=== PATIENT | male | born 1985 | race Caucasian/White ===

== ENCOUNTER 2023-01-13 09:59 | Outpatient (OUT) | payer BC, SELFPAY ==
[2023-01-13 10:37] LABS: Basophils Absolute Auto 0.1 10^3/uL (0.0-0.1); Basophils Percent Auto 0.6 % (0.2-2.0); Eosinophils Absolute Auto 0.2 10^3/uL (0.0-0.7); Eosinophils Percent Auto 2.4 % (0.9-7.0); Hemoglobin 15.5 g/dL (14.0-18.0); Immature Granulocytes Abs Auto 0.05 10^3/uL (0.00-0.03); Immature Granulocytes Pct Auto 0.5 % (0.0-0.5); Lymphocytes Absolute Auto 2.5 10^3/uL (1.2-3.8); Lymphocytes Percent Auto 25.9 % (20.5-60.0); Mean Corpuscular Hemoglobin 28.1 pg (25.9-34.0); Mean Corpuscular Volume 85.3 fL (80.0-94.0); Mean Platelet Volume 9.5 fL (9.5-13.5); Monocytes Percent Auto 9.9 % (1.7-12.0); Neutrophils Absolute Auto 5.9 10^3/uL (1.4-6.5); Neutrophils Percent Auto 60.7 % (43.0-75.0); Platelet Count 400 10^3/uL (150-450); Red Blood Count 5.51 10^6/uL (4.70-6.10); Red Cell Distribution Width 12.7 % (11.0-15.0); White Blood Count 9.8 10^3/uL (4.0-11.0)
[2023-01-13 11:01] LABS: Estimated Average Glucose 111 mg/dL; Glycohemoglobin A1C 5.5 % (4.5-6.2)
[2023-01-13 11:15] LABS: Alanine Aminotransferase 54 U/L (16-63); Albumin Globulin Ratio 0.8; Albumin Level 3.6 g/dL (3.4-5.0); Alkaline Phosphatase 94 U/L (46-116); Aspartate Amino Transferase 30 U/L (15-37); BUN Creatinine Ratio 5.1; Bilirubin Total 0.4 mg/dL (0.2-1.0); Calcium 9.6 mg/dL (8.5-10.1); Carbon Dioxide 25.9 mmol/L (21.0-32.0); Chloride 103 mmol/L (98-107); Chol HDL Ratio 4.7; Cholesterol 147 mg/dL (<=200); Estimated GFR (African America >60 (>=60); Estimated GFR (Non-African Ame >60 (>=60); Free T3 2.94 pg/mL (2.18-3.98); Globulin 4.3 g/dL; Glucose 91 mg/dL (74-106); HDL Cholesterol 31 mg/dL (40-60); Potassium 3.9 mmol/L (3.5-5.1); Sodium 139 mmol/L (136-145); Thyroid Stimulating Hormone 1.877 uIU/mL (0.358-3.740); Total Protein 7.9 g/dL (6.4-8.2); Triglycerides 336 mg/dL (<=150); VLDL CHOLESTEROL 67.2 mg/dL
[2023-01-13 11:51] LABS: Prostate Specific Antigen Scrn 1.19 ng/mL (<=4.00)
[2023-01-14 10:10] LABS: Insulin 47.7 uIU/mL (2.6-24.9)
== END 2023-01-13 10:00 | disposition home or self-care (01) ==
LOC: LAB 10:03
PROVIDERS: PCP Family Medicine; Visit Provider Family Medicine
DX: Z00.00 Encounter for general adult medical examination without abnormal findings (principal)
CPT/HCPCS: 36415; 80053; 80061; 83036; 83525; 84436; 84443; 84481; 85025; G0103

== ENCOUNTER 2023-02-11 09:23 | Outpatient (OUT) | payer BC, SELFPAY ==
--- NOTE | 2023-02-11 09:40 | XR_ITS ---
The [address] [address] Patient Name: BETINA CHAVIRA MRN: [id number] date: 1985 Sex: M Assigned Patient Location: [facility] Current Patient Location: Accession/Order Number: [id number] Exam Date: 02/11/2023 09:33 Report Date: 02/12/2023 12:01 At the request of: KP WILLSON Procedure: XR thoracic spine 2V EXAMINATION: XR thoracic spine 2V HISTORY: Thoracic Sprain S23.9XXA ; thoracic pain/spasm for 2 days COMPARISON: XR chest 2 views 06/27/2016 FINDINGS: BONES: No significant spondylosis, scoliosis, fracture, or visible bony lesion. DISC SPACES: No significant disc height narrowing, subluxation, or endplate abnormality. PARASPINOUS: Negative. No paraspinous abnormality is seen. OTHER: Negative. XR/XR thoracic spine 2V IMPRESSION: 1. Normal examination. Electronically authenticated by: BOUCHRA EMERSON Date: 02/12/2023 12:01
== END 2023-02-11 09:24 | disposition home or self-care (01) ==
LOC: RAD 09:25
PROVIDERS: PCP Family Medicine; Visit Provider Family Medicine
DX: S23.9XXA Sprain of unspecified parts of thorax, initial encounter (principal)
CPT/HCPCS: 72070

== ENCOUNTER 2024-11-17 09:05 | Outpatient (OUT) | payer BC, SELFPAY ==
--- OUTSIDE RECORDS SUMMARY | 2023-09-27 04:58 | XMS_ITS ---
Author Organization The [facility] in [place] Address [address] [place] [address] Care Team Providers Care Health Care Coach Name Role Phone Tomás Peña Primary Care Provider REASON FOR VISIT Ozempic denied Encounters Encounter Location Date Provider Diagnosis [facility] [address] [place] [address] 09/27/2023 Tomás Peña Plan Of Treatment No Information Progress Notes * Rojas CHAVIRA JrDOB: [birth year] (37 yo M)Acc No.[id number]:09/27/2023 Patient: Aliya Rojas KEARNEY Jr :1985 A ge:37 Y S ex:Male Address:[address] [place] [address], [address] * true * Date: Generated for Paulettei ng/Famarving/eTransmitting on: 0 11/17/2024 09:11 AM EDT
--- OUTSIDE RECORDS SUMMARY | 2023-09-29 09:40 | XMS_ITS ---
Author Organization The [facility] in [place] Address [address] [place] [address] Care Team Providers Care Roper Operator Name Role Phone Tomás Peña Primary Care Provider REASON FOR VISIT ozempic Encounters Encounter Location Date Provider Diagnosis [facility] [address] [place] [address] 09/29/2023 Tomás Peña Plan Of Treatment No Information Progress Notes * Rojas CHAVIRA JrDOB: [birth year] (37 yo M)Acc No.[id number]:09/29/2023 Patient: Aliya Rojas EKARNEY Jr :1985 A ge:37 Y S ex:Male Address:[address] [place] [address], [phone] * true * Date: Generated for Printi ng/Famarving/eTransmitting on: 0 11/17/2024 09:12 AM EDT
--- OUTSIDE RECORDS SUMMARY | 2024-05-05 09:30 | XMS_ITS ---
Author Organization The [facility] in [place] Address [address] [place] [address] Care Team Providers Care Brush Finisher Name Role Phone Tomás Peña Primary Care Provider [phone] Allergies Allergen (clinical drug ingredient) Drug/Non Drug Allergy documented on EMR Reaction Allergy Type Onset Date Status phentermine Adipex-P hallucinations Drug Allergy Active pantoprazole Protonix Thyroid Swelling Drug Allergy Active REASON FOR VISIT Flu A getting over still sick thinks he has fluid on lungs, went to urgent care on wednesday, currently on amoxicillin 500mg bid Medications Medication SIG (Take, Route, Frequency, Duration) Notes Start Date End Date Status levoFLOXacin 750 MG 1 tablet Orally Once a day for 10 day(s) 05/05/2024 Active predniSONE 20 MG 3 tablets Orally Onc e a day for 5 days 05/05/2024 Active Triamcinolone Acetonide 0.1 % 1 application Externally Two times a Week 09/22/2023 Active Ventolin HFA 108 (90 Base) MCG/ACT 1 puff as needed Inhalation every 4 hrs PRN Active Diclofenac Sodium 75 MG 1 tablet as need ed Orally Twice a day for 30 PRN 02/11/2023 Active Social History Tobacco Use: Social History Observation Description Date Details (start date - stop date) Never Smoker NA - NA Tobacco Use/Smoking Question Answer Notes Patient is a nonsmoker AUDIT-C (Standard) Question Answer Notes Did you have a drink containing alcohol in the p ast year? No Points 0 Interpretation Negative Vital Signs Weight 230 lbs 05/05/2024 Height 69 in 05/05/2024 Blood pressure systolic 110 mm Hg 05/05/19 25 Blood pressure diastolic 68 mm Hg 025 BMI 33.96 kg/m2 05/05/2024 Encounters Encounter Location Date Provider Diagnosis [facility] [address] [place] [address] 05/05/2024 Tomás Peña Acute bronchitis, unspecified organism J20.9 Assessments Encounter Date Diagnosis (ICD Code) Assessment Notes Treatment Notes Treatment Clinical Notes Section Notes 05/05/2024 Acute bronchitis, unspecified organism (ICD-10 - J20.9) Rest and drink more liquids, especially water. You may use a humidifier or vaporizer to help keep the drainage moist. Qwas-rwn-xmpuxcr Nasal Saline may help the stuffy and runny nose. Use Ibuprofen and or Tylenol as needed for fever, chills, body aches or pain. Children 5 years old should not be given pyol-vxo-tgrzmri cough and cold medications such as guaifenesin and dextromethorphan. If you're over age 5, you may try jquq-mqh-pcunurz cold medications such as guaifenesin and dextromethorphan, or multi-symptom cold reliever such as Dayquil to help reduce the symptoms. Antibiotics have been prescribed. You should take these until completed and follow the directions. Antibiotics can sometimes cause upset stomach, and in rare cases, serious allergic reactions or serious gastrointestinal problems. If you start having severe abdominal pain, severe vomiting, or bloody diarrhea, you should be reevaluated by your physician or urgent care immediately. Follow up with your Primary Care Provider or return to clinic if symptoms do not improve within 3-5 days. If you develop severe symptoms such as shortness of breath, repeated vomiting, coughing up blood, or chest pain you should go to the emergency room or call 911 Plan Of Treatment Medication Medication Name Sig Start Date Stop Date Notes levoFLOXacin 750 MG 1 tablet Orally Once a day for 10 day(s) 05/05/2024 predniSONE 20 MG 3 tablets Orally Once a day for 5 days Treatment Notes Assessment Notes Acute bronchitis, unspecified organism R est and drink more liquids, especially water. You may use a humidifier or vaporizer to help keep the drainage moist. Khpk-cer-bxzivde Nasal Saline may help the stuffy and runny nose. Use Ibuprofen and or Tylenol as needed for fever, chills, body aches or pain. Children 5 years old should not be given rlyn-zoq-cmhopyw cough and cold medications such as guaifenesin and dextromethorphan. If you're over age 5, you may try xdgv-gpp-iekekhl cold medications such as guaifenesin and dextromethorphan, or multi-symptom cold reliever such as Dayquil to help reduce the symptoms. Antibiotics have been prescribed. You should take these until completed and follow the directions. Antibiotics can sometimes cause upset stomach, and in rare cases, serious allergic reactions or serious gastrointestinal problems. If you start having severe abdominal pain, severe vomiting, or bloody diarrhea, you should be reevaluated by your physician or urgent care immediately. Follow up with your Primary Care Provider or return to clinic if symptoms do not improve within 3-5 days. If you develop severe symptoms such as shortness of breath, repeated vomiting, coughing up blood, or chest pain you should go to the emergency room or call 911 Next Appt Details Follow Up: 3-5 days if not i mproving, Reason: Progress Notes * FANRojas JrDOB: [birth year] (38 yo M)Acc No.[id number]:05/05/2024 Progress Note Patient: Aliya KEARNEY Rojas Yañez Provider: Arpita Peña ([facility])MD :1985 A ge:38 Y S ex:Male Date:05/05/2024 Address:[address] [place], [place] [id number] Check In:01:20 PM ESTCheck O ut:01:41 PM EST Subjective: * Chief Complaints: * Erica Yañez getting over still sick thinks he has fluid on lungsWent to urgent care on wednesday, currently on amoxicillin 500mg bid * HPI: B ronchitis: The patient complains of symptoms of bronchitis. The symptoms have been present for 1-2 days. The symptoms are moderate. The patient has not been exposed to sick contacts. Symptomatic treatment has included OTC medication. Associated symptoms include nasal congestion, postnasal drainage, congested ears, cough, fever, chills, body aches. * ROS: E NT: Ear pain d enies. H oarseness d enies. ? C ardiovascular: Edema d enies. P alpitations d enies. ? R espiratory: Comments S [facility] for details. G astrointestinal: Abdominal pain d enies. D iarrhea d enies. N ausea d enies. S kin: Rash d enies. 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 (erectile dysfunc tion) of non-organic origin Modified On:08/11/2022 Status:confirmed L71.9 Rosacea Modified On:08/11/2022 Status:confirmed J30.2 Allergic rhinitis, s easonal Modified On:08/11/2022 Status:confirmed E11.65 Type 2 diabetes rich itus with hyperglycemia Modified On:08/11/2022 Status:confirmed J45.909 Asthma Modified On:08/11/2022 Status:confirmed E66.9 Obesity Modified On:08/11/2022 Status:confirmed F32.9 Depression Modified On:08/11/2022 Status:confirmed R22.0 Mass of head Modified On:08/11/2022 Status:confirmed K21.9 Gastro-esophageal re flux disease Modified On:08/11/2022 Status:confirmed B08.8 Other specified ivette l exanthemata Modified On:08/11/2022 Status:confirmed M79.643 Pain, hand joint Modified On:08/11/2022U Status:confirmed U07.1 COVID-19 virus infec tion Modified On:08/11/2022 Status:confirmed M54.50 Low back pain, unspe cified Modified On:08/11/2022U Status:confirmed G47.00 Insomnia Modified On:08/12/2022 Status:confirmed F32.A Depression Modified On:08/12/2022 Status:confirmed E78.00 Pure hypercholestero lemia, unspecified Modified On:01/14/2023 Status:confirmed S23.9XXA Thoracic sprain Modified On:02/11/2023 Status:confirmed J01.90 Acute sinusitis Modified On:05/20/2023U Status:confirmed L30.9 Eczema Modified On:09/22/2023 Status:confirmed * Medical History: * Surgical History: D iscectomy Clavicle Realignment [place] Teeth Extraction * Hospitalization/Major Diagno stic Procedure: N o Hospitalization History. * Family History: F ather: alive 55 yrs. M other: alive 55 yrs. S ister(s): alive, Chron's disease. S on(s): alive. D aughter(s): alive. 1 sister(s) . 1 son(s) , 1 daughter(s) - healthy. .? * Social History: T obacco Use: T obacco Use/Smoking P atient is a n onsmoker D rug/Alcohol: A HEBER-C (Standard) D id you have a drink containing alcohol in the past year? N o P oints 0 I nterpretation N egative * Medications: T akingDiclofenac Sodium 75 MG Tablet Delayed Release 1 tablet as needed Orally Twice a day , Notes to Pharmacist: PRNTriamcinolone Acetonide 0.1 % Cream 1 application Externally Two times a Week Ventolin HFA(Albuterol Sulfate HFA) 108 (90 Base) MCG/ACT Aerosol Solution 1 puff as needed Inhalation every 4 hrs , Notes to Pharmacist: PRNMedication List reviewed and reconciled with the patientTaking Diclofenac Sodium 75 MG Tablet Delayed Release 1 tablet as needed Orally Twice a day , Notes to Pharmacist: PRNTaking Triamcinolone Acetonide 0.1 % Cream 1 application Externally Two times a Week Taking Ventolin HFA(Albuterol Sulfate HFA) 108 (90 Base) MCG/ACT Aerosol Solution 1 puff as needed Inhalation every 4 hrs , Notes to Pharmacist: PRNMedication List reviewed and reconciled with the patient * Allergies: P rotonix: Thyroid Swelling - Allergy - Criticality HighAdipex-P: hallucinations - Side Effectsno[Allergies Verified] Objective: * Vitals: W t:230lbs, Ht: 69 in, BP:110/68mm Hg, BMI:33.96Index, Ht-cm: 175.26 cm, Wt-k.33 kg. * Examination: G eneral Examination: GENERAL APPEARANCE: in no acute distress. EYES: EOMI. EARS: auditory canal clear, middle ear effusion noted.? NOSE: clear discharge, turbinates pale and swollen. ORAL CAVITY: mucosa moist. THROAT: no erythema, post-nasal drainage noted. NECK: neck supple, no thyromegaly. LYMPH NODES: n o cervical adenopathy. LUNGS: d iffuse wheeze and rhonchi. CARDIO: n o murmurs, regular rate and rhythm. ABDOMEN: bowel sounds present, no organomegaly . ? Assessment: * Assessment: 1. A cute bronchitis, unspecified organism - J20.9 (Primary) Plan: * Treatment: * Procedure Codes: * Preventive Medicine: Screenings/Counseling: B SC ACTION PLAN Above Normal BMI Follow-up D ietary management education, guidance, and counseling * Follow Up: 3 -5 days if not improving * * Sign off status: Completed Visit Status: C HK (Check Out) true * Provider: Arpita Peña ([facility])MD Date: 05/05/2024 Generated for Paulettei herlinda/Ruperto/eTransmitting on: 0 11/17/2024 09:11 AM EDT History and Physical Notes * Examination Category Sub-Category Detail Notes Category Not es General Examination GENERAL APPEARANCE: in no acute di stress EYES: EOMI EARS: auditory canal clear , middle ear effusion noted NOSE: clear discharge, tur binates pale and swollen THROAT: no erythema, post-na koko drainage noted NECK: neck supple, no thyr omegaly CARDIO: no murmurs, regular rate and rhythm LUNGS: diffuse wheeze and r honchi ABDOMEN: bowel sounds present , no organomegaly LYMPH NODES: no cervical adenopat hy ORAL CAVITY: mucosa moist
--- OUTSIDE RECORDS SUMMARY | 2024-10-20 06:00 | XMS_ITS ---
Author Organization The [facility] in [place] Address [address] [place] [address] Care Team Providers Care Cafeteria Attendant Name Role Phone Tomás Peña Primary Care Provider Allergies Allergen (clinical drug ingredient) Drug/Non Drug Allergy documented on EMR Reaction Allergy Type Onset Date Status phentermine Adipex-P hallucinations Drug Allergy Active pantoprazole Protonix Thyroid Swelling Drug Allergy Active REASON FOR VISIT eczema flare, stomach arm pits and legs and arms, heat not helping, used OTC and Rx steriod cream nothing helping Medications Medication SIG (Take, Route, Frequency, Duration) Notes Start Date End Date Status predniSONE 20 MG 3 tablets Orally Onc e a day for 5 days 05/05/2024 Active Triamcinolone Acetonide 0.1 % 1 application Externally Two times a Week 09/22/2023 Active Ventolin HFA 108 (90 Base) MCG/ACT 1 puff as needed Inhalation every 4 hrs PRN Active predniSONE 20 MG 3 tablets Orally Onc e a day for 5 days 10/20/2024 Active levoFLOXacin 750 MG 1 tablet Orally Once a day for 10 day(s) 05/05/2024 Active Diclofenac Sodium 75 MG 1 tablet [...] Points 0 Interpretation Negative Vital Signs Weight 234.4 lbs 10/20/2024 Height 69 in 10/20/2024 Blood pressure systolic 110 mm Hg 10/21/19 25 Blood pressure diastolic 78 mm Hg 025 BMI 34.61 kg/m2 10/20/2024 Encounters Encounter Location Date Provider Diagnosis [facility] [address] [place] [address] 10/20/2024 Tomás Peña Eczema L30.9 Assessments Encounter Date Diagnosis (ICD Code) Assessment Notes Treatment Notes Treatment Clinical Notes Section Notes 10/20/2024 Eczema (ICD-10 - L30.9) Plan Of Treatment Medication Medication Name Sig Start Date Stop Date Notes predniSONE 20 MG 3 tablets Orally Once a day for 5 days Medications Administered Medication Instructions Date of Administration Dosage Notes Dexamethasone, 4mg/mL 10/20/2024 12 mg Progress Notes * Rojas CHAVIRA JrDOB: [birth year] (38 yo M)Acc No.[id number]:10/20/2024 Progress Note Patient: Aliya KEARNEY Rojas Yañez Provider: Arpita Peña ([facility])MD :1985 A ge:38 Y S ex:Male Date:10/20/2024 Address:[address] [place], [place] [address] Check In:09:42 AM ESTCheck O ut:10:24 AM EST Subjective: * Chief Complaints: * E czema flareStomach arm pits and legs and armsHeat not helpingused OTC and Rx steriod cream nothing helping * HPI: G eneral: Eczema flare - pretty bekph1r - gettign worse -0 despite usual cream. * Active Problem List M51.9 Lumbar disc disease Modified On:08/11/2022/U Status:confirmed M51.26 Lumbar herniated dis c Modified On:08/11/2022/U Status:confirmed K52.9 Chronic diarrhea Modified On:08/11/2022/U Status:confirmed M54.30 Sciatica Modified On:08/11/2022/U Status:confirmed M79.661 Pain in right lower leg Modified On:08/11/2022/U Status:confirmed F52.21 ED (erectile dysfunc tion) of [...] On:08/11/2022 Status:confirmed M79.643 Pain, hand joint Modified On:08/11/2022 Status:confirmed U07.1 COVID-19 virus infec tion Modified On:08/11/2022 Status:confirmed M54.50 Low back pain, unspe cified Modified On:08/11/2022 Status:confirmed G47.00 Insomnia Modified On:08/12/2022 Status:confirmed F32.A Depression Modified On:08/12/2022 Status:confirmed E78.00 Pure hypercholestero lemia, unspecified Modified On:01/14/2023 Status:confirmed S23.9XXA Thoracic sprain Modified On:02/11/2023 Status:confirmed J01.90 Acute sinusitis Modified On:05/20/2023 Status:confirmed L30.9 Eczema Modified On:09/22/2023 Status:confirmed * Medical History: * Surgical History: D iscectomy Clavicle Realignment [place] Teeth Extraction * Hospitalization/Major Diagno stic Procedure: D enies Past Hospitalization * Family History: F ather: alive 55 yrs. M other: alive 55 yrs. S ister(s): alive, Chron's disease. S on(s): alive. D pranaver(s): alive. 1 sister(s) . 1 son(s) , [...] Twice a day , Notes to Pharmacist: PRNlevoFLOXacin 750 MG Tablet 1 tablet Orally Once a day predniSONE 20 MG Tablet 3 tablets Orally Once a day Triamcinolone Acetonide 0.1 % Cream 1 application Externally Two times a Week Ventolin HFA(Albuterol Sulfate HFA) 108 (90 Base) MCG/ACT Aerosol Solution 1 puff as needed Inhalation every 4 hrs , Notes to Pharmacist: PRNMedication List reviewed and reconciled with the patientTaking Diclofenac Sodium 75 MG Tablet Delayed Release 1 tablet as needed Orally Twice a day , Notes to Pharmacist: PRNTaking levoFLOXacin 750 MG Tablet 1 tablet Orally Once a day Taking predniSONE 20 MG Tablet 3 tablets Orally Once a day Taking Triamcinolone Acetonide 0.1 % Cream 1 application Externally Two times a Week Taking Ventolin HFA(Albuterol Sulfate HFA) 108 (90 Base) MCG/ACT Aerosol Solution 1 puff as needed Inhalation every 4 hrs , Notes to Pharmacist: PRNMedication List reviewed and reconciled with the patient * Allergies: P rotonix: Thyroid Swelling - Allergy - Criticality HighAdipex-P: hallucinations - Side Effectsno[Allergies Verified] Objective: * Vitals: W t:234.4lbs, Ht: 69 in, BP:110/78mm Hg, BMI:34.61Index, Ht-cm: 175.26 cm, Wt-k.32 kg. * Examination: A bdomen Exam:: d iffuse exezema - sever palre - abd and up into acilla and arms. Assessment: * Assessment: 1. E czema - L30.9 (Primary) Plan: * Treatment: * Therapeutic Injections: Dexamethasone, 4mg/mL : 12 mg (Route: Intramuscular) given by NICOLE Bazan on left gluteus (Eczema) * Procedure Codes: [id number] THERAP.INJ. OF MED. INTRAMUSCULAR OR [id number] Dexamethasone, 4mg/mL, Units: 3.00 * Preventive Medicine: Screenings/Counseling: B [place] ACTION PLAN Above Normal BMI Follow-up D ietary management education, guidance, and counseling * * Sign off status: Completed Visit Status: C HK (Check Out) true * Provider: Arpita Peña ([facility])MD Date: 0 10/20/2024 Generated for Mikie pate/Ruperto/Apolloitting on: 0 11/17/2024 09:11 AM EDT History and Physical Notes * HPI (History of Present Illness) Category Sub-Category Detail Notes Category Not es General Eczema flare - pretty [id number] - gettign worse -0 despite usual cream Examination Category Sub-Category Detail Notes Category Not es Abdomen Exam: diffuse exezem a - sever palre - abd and up into acilla and arms
--- OUTSIDE RECORDS SUMMARY | 2024-11-16 05:00 | XMS_ITS ---
Author Organization [facility] [place] Address [address] [place] [address] Care Team Providers Care Sports Book Server Name Role Phone Tomás Peña Primary Care Provider Allergies Allergen (clinical drug ingredient) Drug/Non Drug Allergy documented on EMR Reaction Allergy Type Onset Date Status phentermine Adipex-P hallucinations Drug Allergy Active pantoprazole Protonix Thyroid Swelling Drug Allergy Active REASON FOR VISIT Headache above right eye that comes on around 1pm last 4 hours, no meds help it- then goes away for2 hours and comes back- dont wake up with it- feels like ice pick above right eyebrow Medications Medication SIG (Take, Route, Frequency, Duration) Notes Start Date End Date Status Ventolin HFA 108 (90 Base) MCG/ACT 1 puff as needed Inhalation every 4 hrs PRN Active Triamcinolone Acetonide 0.1 % 1 application Externally Two times a Week 09/22/2023 Active Imitrex 100 MG 1 tablet at least 2 hours between doses as needed Orally Twice a day As needed 11/16/2024 Active Social History Tobacco Use: Social History Observation Description Date Details (start date - stop date) Never Smoker NA - NA Tobacco Use/Smoking Question Answer Notes Patient is a nonsmoker AUDIT-C (Standard) Question Answer Notes Did you have a drink containing alcohol in the p ast year? No Points 0 Interpretation Negative Problems Problem Type SNOMED Code ICD Code Onset Dates Problem Status W/U Status Risk Notes Problem Well adult (131222893) Well adult (Z00.00) Active confirmed Problem Migraine (27489220) Migraine (G43.909) Active confirmed Vital Signs Weight 241.6 lbs 11/16/2024 Height 69 in 11/16/2024 Blood pressure systolic 124 mm Hg 11/17/19 25 Blood pressure diastolic 82 mm Hg 025 BMI 35.67 kg/m2 11/16/2024 Encounters Encounter Location Date Provider Diagnosis [facility] [address] [place] [address] 11/16/2024 Tomás Hoy Migraine G43.909 and Well adult Z00.00 Assessments Encounter Date Diagnosis (ICD Code) Assessment Notes Treatment Notes Treatment Clinical Notes Section Notes 11/16/2024 Migraine (ICD-10 - G43.909) If imitrex not helping - calling back - needs MRI and try different meds 11/16/2024 Well adult (ICD-10 - Z00.00) Plan Of Treatment Medication Medication Name Sig Start Date Stop Date Notes Imitrex 100 MG 1 tablet at least 2 hours between doses as needed Orally Twice a day 11/16/2024 Treatment Notes Assessment Notes Migraine If imitrex not helpi ng - calling back - needs MRI and try different meds Pending Test Test Name Order Date HEMOGLOBIN A1C (GLYCO) 11/16/2024 INSULIN, TOTAL 11/16/2024 LIPID PANEL (CHOL/TRIG/HDL/LDL) 11/17/19 25 THYROID PANEL (T4/TSH/FREE T3) CMP (COMP MET PRICE) w/eGFR CKD-EPI 2024 CBC WITH DIFF 11/16/2024 Progress Notes * Rojas CHAVIRA JrDOB: [birth year] (38 yo M)Acc No.[id number]:11/16/2024 UNLOCKED PROGRESS NOTE Progress Note Patient: Aliya KEARNEYRojas Jr Provider: Arpita Peña ([facility])MD :1985 A ge:38 Y S ex:Male Date:11/16/2024 Address:[address] [place], [place] [id number] Check In:08:33 AM ESTCheck O ut:09:31 AM EST Subjective: * Chief Complaints: * 1 . Headache above right eye that comes on around 1pm last 4 hours, no meds help it- then goes away for 2 hours and comes back- dont wake up with it- feels like ice pick above right eyebrow. * HPI: G eneral: amost every day - getting headachds- - R frontal but no other symptoms. * ROS: E ENT: hearing changes d enies. v isual changes d enies.?non-healing mouth sores d enies. s wollen glands or neck lumps d enies. h oarseness d enies. s ore throat d enies. d ifficulty swallowing d enies. n ose bleeds d enies. n javed congestion d enies. e ar ache d enies. e ar discharge?denies. r inging in ears d enies. l ight sensitivity d enies. e ye pain d enies. b lurring d enies. e ye irritation d enies. d ouble vision d enies.?vision loss d enies. G eneral/Constitutional: Sweats: D enies. F atigue d enies. S leep problems d enies. A norexia d enies. M alaise d enies. W eight loss d enies.?Fatigue or Weakness d enies. F ever or Chills d enies. C ardiovascular: Shortness of Breath w/lying flat d enies. L ightheadedness/dizziness d enies. C hest tightness/ heavy pressure d enies. S welling of legs, ankles, or feet d enies. W aking up with shortness of breath d enies. C hest pain denies. P alpitations d enies. W eight gain d enies. R espiratory: Chronic or frequent cough d enies. C oughing up blood?denies. D ifficulty breathing d enies. P roductive cough d enies. S noring?denies. S hortness of breath that awakens from sleep (PND) d enies. C hest pain d enies. S putum production d enies. W heezing d enies. M usculoskeletal: Joint pain d enies. J oint Fluid d enies. B ack pain d enies. K nee pain d enies. N frankie pain d enies. J oint Stiffness d enies. M uscle cramps d enies. W eakness of muscles d enies. A rthritis d enies. M uscle aches d enies. P ain in shoulder(s) d enies. S wollen joints d enies. * Medical History: C OVID-19 virus infection, Other specified viral exanthemata, Mass of head, Gastro-esophageal reflux disease, Obesity, Low back pain, unspecified, Lumbar herniated disc, Sciatica, Pain in right lower leg, Lumbar disc disease, Chronic diarrhea, Type 2 diabetes mellitus with hyperglycemia, Rosacea, Pain, hand joint, ED (erectile dysfunction) of non-organic origin, Allergic rhinitis, seasonal, Depression, Asthma. * Surgical History: D iscectomy , Clavicle Realignment , [place] Teeth Extraction . * Hospitalization/Major Diagno stic Procedure: D enies Past Hospitalization. * Family History: F ather: alive 55 yrs. M other: alive 55 yrs. S ister(s): alive, Chron's disease. S on(s): alive. D augblakeer(s): alive. 1 sister(s) . 1 son(s) , 1 daughter(s) - healthy. .? * Social History: T obacco Use: T obacco Use/Smoking P atient is a n onsmoker D rug/Alcohol: A HEBER-C (Standard) D id you have a drink containing alcohol in the past year? N o P oints 0 I nterpretation N egative * Medications: T aking Triamcinolone Acetonide 0.1 % Cream 1 application Externally Two times a Week , Taking Ventolin HFA(Albuterol Sulfate HFA) 108 (90 Base) MCG/ACT Aerosol Solution 1 puff as needed Inhalation every 4 hrs , Notes to Pharmacist: PRN, Discontinued Diclofenac Sodium 75 MG Tablet Delayed Release 1 tablet as needed Orally Twice a day , Notes to Pharmacist: PRN, Discontinued levoFLOXacin 750 MG Tablet 1 tablet Orally Once a day , Discontinued predniSONE 20 MG Tablet 3 tablets Orally Once a day , Discontinued predniSONE 20 MG Tablet 3 tablets Orally Once a day , Medication List reviewed and reconciled with the patient * Allergies: P rotonix: Thyroid Swelling - Allergy - Criticality High, Adipex-P: hallucinations - Side Effects. Objective: * Vitals: W t:241.6lbs, Ht: 69 in, BP:124/82mm Hg, BMI:35.67Index, Ht-cm: 175.26 cm, Wt-k.59 kg. * Examination: P hysical Exam: GENERAL: w ell developed, well nourished, in no acute distress. HEAD: n ormocephalic/atraumatic. EYES: p upils equal, round and reactive to light, conjunctivae and sclerae normal. EARS: n o deformity or lesion of external ear, canals and TM appear normal bilaterally, TM's intact, not inflamed with normal light reflex, hearing grossly normal to conversational speech. NOSE: n o deformity, discharge, inflammation, or lesions.? MOUTH: m ucous membranes moist, normal oropharynx and posterior pharynx without lesions or exudates, tongue normal, dentition normal. NECK: n frankie supple, no masses or palpable cervical nodes, trachea midline, thyroid without nodules, masses, tenderness, or enlargement. CHEST: n o chest wall deformity, no chest wall tenderness.? LUNGS: n ormal respiratory effort and clear to auscultation, no wheezes, rales, or rhonchi, good air exchange. CARDIO: r egular rate and rhythm, normal S1 and S2, nor murmur, rub, or gallop. PULSES: n ormal capillary refill. ABDOMEN: s oft, non-distended, non-tender, no masses. MUSCULOSKELETAL: n o deformity or scoliosis noted, normal range of motion, joints normal, no erythema, edema, effusion, or ecchymosis. EXTREMITY: n o clubbing, cyanosis, edema, or deformity with normal ROM in both upper and lower bilateral extremities. NEUROLOGIC: g rossly normal. SKIN: n o rashes, ulcerations, or suspicious lesions. LYMPH NODES: n o cervical adenopathy, nodes normal. MENTAL STATUS: a lert and oriented x3, normal mood and affect. Assessment: * Assessment: 1. M igraine - G43.909 (Primary) 2 . W ell adult - Z00.00 Plan: * Treatment: 2. W ell adult L AB: HEMOGLOBIN A1C (GLYCO) L AB: INSULIN, TOTAL L AB: LIPID PANEL (CHOL/TRIG/HDL/LDL) L AB: THYROID PANEL (T4/TSH/FREE T3) L AB: CMP (COMP MET PRICE) w/eGFR CKD-EPI L AB: CBC WITH DIFF * Preventive Medicine: Screenings/Counseling: B TX ACTION PLAN Above Normal BMI Follow-up D ietary management education, guidance, and counseling * * Electronic signature of Tomás Peña MD, [id number] on 11/17/2024 at 09:10 AM EDT Sign off status: Pending Visit Status: C HK (Check Out) * Provider: Arpita Peña ([facility])MD Date: 11/16/2024 Generated for Printi ng/Faxing/eTransmitting on: 11/17/2024 09:10 AM EDT History and Physical Notes * HPI (History of Present Illness) Category Sub-Category Detail Notes Category Not es General amost every day - getting headachds- - R frontal but no other symptoms Examination Category Sub-Category Detail Notes Category Not es Physical Exam GENERAL: well developed, well nourished, in no acute distress HEAD: normocephalic/atraum atic EYES: pupils equal, round and reactive to light, conjunctivae and sclerae normal EARS: no deformity or lesi on of external ear, canals and TM appear normal bilaterally, TM's intact, not inflamed with normal light reflex, hearing grossly normal to conversational speech NOSE: no deformity, discha rge, inflammation, or lesions MOUTH: mucous membranes stefanie st, normal oropharynx and posterior pharynx without lesions or exudates, tongue normal, dentition normal NECK: neck supple, no mass es or palpable cervical nodes, trachea midline, thyroid without nodules, masses, tenderness, or enlargement CHEST: no chest wall deform ity, no chest wall tenderness LUNGS: normal respiratory e ffort and clear to auscultation, no wheezes, rales, or rhonchi, good air exchange CARDIO: regular rate and rhy thm, normal S1 and S2, nor murmur, rub, or gallop PULSES: normal capillary ref ill ABDOMEN: soft, non-distended, non-tender, no masses RECTAL: MUSCULOSKELETAL: no deformity or scol iosis noted, normal range of motion, joints normal, no erythema, edema, effusion, or ecchymosis EXTREMITY: no clubbing, cyanosi s, edema, or deformity with normal ROM in both upper and lower bilateral extremities NEUROLOGIC: grossly normal SKIN: no rashes, ulceratio ns, or suspicious lesions LYMPH NODES: no cervical adenopat hy, nodes normal MENTAL STATUS: alert and oriented x 3, normal mood and affect
--- OUTSIDE RECORDS SUMMARY | 2024-11-17 09:10 | XMS_ITS | Encounter Summary ---
Author Organization [facility] Address [address] [facility] [place] [address] Phone Care Team Providers Care Farm Machinery Erector Name Role Phone Rafa Keen MD Primary Care Provider [phone] Encounter Details Date Type Department Care Team (Late st Contact Info) Description 10/15/2024 Patient Risk Score ACO Care Management [address] [place] [address] Social History Tobacco Use Types Packs/Day Years Used Date Smoking Tobacco: Never Assessed Sex and Gender Information Value Date Recorded Sex Assigned at Not on file Legal Sex Male 4:07 PM EST Gender Identity Not on file Sexual Orientation Not on file documented as of this encounter Plan of Treatment Not on file documented as of this encounter Visit Diagnoses Not on filedocumented in this encounter Care Teams Farm Machinery Erector Relationship Specialty Start Date End Date Rafa Keen MD [address] [facility] [place] [place] [address] PCP - General 11/15/20 documented as of this encounter
--- OUTSIDE RECORDS SUMMARY | 2024-11-17 09:10 | XMS_ITS | Encounter Summary ---
Author Organization [facility] Address [address] [facility] [place] [address] Phone Care Team Providers Care Fire Services Plumber Name Role Phone Rafa Keen MD Primary Care Provider [phone] Encounter Details Date Type Department Care Team (Late st Contact Info) Description 11/15/2024 Patient Risk Score ACO Care Management [address] [place] [address] Social History Tobacco Use Types [...] on filedocumented in this encounter Care Teams Fire Services Plumber Relationship Specialty Start Date End Date Rafa Keen MD [address] [facility] [place] [address] PCP - General 11/15/20 documented as of this encounter
--- OUTSIDE RECORDS SUMMARY | 2024-11-17 09:10 | XMS_ITS | Clinical Summary ---
Author Organization [facility] Address [address] [place] [address] Care Team Providers Care Hang Gliding Instructor Name Role Phone Unavailable Primary Care Provider Unavailabl e Social History Tobacco Use Types Packs/Day Years Used Date Smoking Tobacco: Never Assessed Sex and Gender Information Value Date Recorded Sex Assigned at Not on file Legal Sex Male 8:27 PM EDT Gender Identity Not on file Sexual Orientation Not on file Last Filed Vital Signs Vital Sign Reading Time Taken Comments Blood Pressure 115/88 02/07/2018 12:00 PM EST Pulse - - Temperature - - Respiratory Rate - - Oxygen Saturation - - Inhaled Oxygen Concentration - - Weight 111 kg (245 lb) 07/24/2020 12:00 PM EDT Height 175.3 cm (5' 9 ) 07/24/2020 12:00 PM EDT Body Mass Index 36.18 07/24/2020 12:00 PM EDT Plan of Treatment Not on file
--- OUTSIDE RECORDS SUMMARY | 2024-11-17 09:10 | XMS_ITS | Clinical Summary ---
Author Organization [facility] Address [address] [place] [address] Phone Care Team Providers Care Dry Yard Worker Name Role Phone Rafa Keen MD Primary Care Provider [phone] Encounters Date Type Department Care Team Description 11/15/2024 Patient Risk Score ACO Care Management [address] [place] [address] 10/15/2024 Patient Risk Score ACO Care Management [address] [place] [address] 09/15/2024 Patient Risk Score ACO Care Management [address] [place] [address] from Last 3 Months Social History Tobacco Use Types Packs/Day Years Used Date Smoking Tobacco: Never Assessed Sex and Gender Information Value Date Recorded Sex Assigned at Not on file Legal Sex Male 4:07 PM EST Gender Identity Not on file Sexual Orientation Not on file Plan of Treatment Health Maintenance Due Date Last Done Comments HIV Screening 1985 Lipid Panel 1986 MMR Vaccines (1 of 1 - Stand daniel series) 12/30/1987 Hepatitis C Screening 2004 Hepatitis B Vaccines (1 of 3 - 19+ 3-dose series) 2005 DTaP/Tdap/Td Vaccines (1 - Tdap) 2008 HPV Vaccines (1 - 3-dose sta ndard series) 2013 COVID-19 Vaccine (1 - 2023-2 5 season) 2023 Yearly Adult Physical 01/15/2024 01/13/2023 Influenza Vaccine (#1) 2024 Zoster Vaccines (1 of 2) 2036 HIB Vaccines Aged Out No longer eligi ble based on patient's age to complete this topic Hepatitis A Vaccines Aged Out No long er eligible based on patient's age to complete this topic IPV Vaccines Aged Out No longer eligi ble based on patient's age to complete this topic Meningococcal Vaccine Aged Out No woo marilyn eligible based on patient's age to complete this topic Pneumococcal Vaccine: Pediat rics and At-Risk Adult Patients Aged Out No longer anatoliy gible based on patient's age to complete this topic Rotavirus Vaccines Aged Out No longer eligible based on patient's age to complete this topic Care Teams Dry Yard Worker Relationship Specialty Start Date End Date Rafa Keen MD [address] [place] [address] PCP - General 11/15/20
--- OUTSIDE RECORDS SUMMARY | 2024-11-17 09:11 | XMS_ITS | Encounter Summary ---
Author Organization [facility] Address [address] [facility] [place] [address] Phone Care Team Providers Care Glue Machine Operator Name Role Phone Rafa Keen MD Primary Care Provider [phone] Encounter Details Date Type Department Care Team (Late st Contact Info) Description 07/17/2023 Patient Risk Score ACO Care Management [address] [place] [address] Social History Tobacco Use Types [...] on filedocumented in this encounter Care Teams Glue Machine Operator Relationship Specialty Start Date End Date Rafa Keen MD [address] [facility] [place] [address] PCP - General 11/15/20 documented as of this encounter
--- OUTSIDE RECORDS SUMMARY | 2024-11-17 09:11 | XMS_ITS | Encounter Summary ---
Author Organization [facility] Address [address] [facility] [place] [address] Phone Care Team Providers Care Tile Setter Name Role Phone Rafa Keen MD Primary Care Provider [phone] Encounter Details Date Type Department Care Team (Late st Contact Info) Description 01/17/2024 Patient Risk Score ACO Care Management [address] [place] [address] Social History Tobacco Use Types [...] on filedocumented in this encounter Care Teams Tile Setter Relationship Specialty Start Date End Date Rafa Keen MD [address] [facility] [place] [address] PCP - General 11/15/20 documented as of this encounter
--- OUTSIDE RECORDS SUMMARY | 2024-11-17 09:11 | XMS_ITS | Encounter Summary ---
Author Organization [facility] Address [address] [facility] [address] Phone Care Team Providers Care Channel Layer Name Role Phone Rafa Keen MD Primary Care Provider [phone] Encounter Details Date Type Department Care Team (Late st Contact Info) Description 05/17/2023 Patient Risk Score ACO Care Management [address] [place] [address] Social History Tobacco Use Types [...] on filedocumented in this encounter Care Teams Channel Layer Relationship Specialty Start Date End Date Rafa Keen MD [address] [facility] [place] [address] PCP - General 11/15/20 documented as of this encounter
--- OUTSIDE RECORDS SUMMARY | 2024-11-17 09:11 | XMS_ITS | Encounter Summary ---
Author Organization [facility] Address [address] [facility] [place] [address] Phone Care Team Providers Care Shaker Flatwork Name Role Phone Rafa Keen MD Primary Care Provider [phone] Encounter Details Date Type Department Care Team (Late st Contact Info) Description 06/16/2024 Patient Risk Score ACO Care Management [address] [place] [address] Social History Tobacco Use Types [...] on filedocumented in this encounter Care Teams Shaker Flatwork Relationship Specialty Start Date End Date Rafa Keen MD [address] [facility] [place] [address] PCP - General 11/15/20 documented as of this encounter
--- OUTSIDE RECORDS SUMMARY | 2024-11-17 09:11 | XMS_ITS | Encounter Summary ---
Author Organization [facility] Address [address] [facility] [address] Phone Care Team Providers Care Senior Sourcing Manager Name Role Phone Rafa Keen MD Primary Care Provider [phone] Encounter Details Date Type Department Care Team (Late st Contact Info) Description 02/16/2024 Patient Risk Score ACO Care Management [address] [place] [address] Social History Tobacco Use Types [...] on filedocumented in this encounter Care Teams Senior Sourcing Manager Relationship Specialty Start Date End Date Rafa Keen MD [address] [facility] [place] [address] PCP - General 11/15/20 documented as of this encounter
--- OUTSIDE RECORDS SUMMARY | 2024-11-17 09:11 | XMS_ITS | Encounter Summary ---
Author Organization [facility] Address [address] [facility] [place] [address] Phone Care Team Providers Care Toddler Nanny Name Role Phone Rafa Keen MD Primary Care Provider [phone] Encounter Details Date Type Department Care Team (Late st Contact Info) Description 03/18/2024 Patient Risk Score ACO Care Management [address] [place] [address] Social History Tobacco Use Types [...] on filedocumented in this encounter Care Teams Toddler Nanny Relationship Specialty Start Date End Date Rafa Keen MD [address] [facility] [place] [address] PCP - General 11/15/20 documented as of this encounter
--- OUTSIDE RECORDS SUMMARY | 2024-11-17 09:11 | XMS_ITS | Encounter Summary ---
Author Organization [facility] Address [address] [facility] [place] [address] Phone Care Team Providers Care Hospice Home Care Coordinator Name Role Phone Rafa Keen MD Primary Care Provider [phone] Encounter Details Date Type Department Care Team (Late st Contact Info) Description 07/16/2024 Patient Risk Score ACO Care Management [address] [place] [address] Social History Tobacco Use Types [...] on filedocumented in this encounter Care Teams Hospice Home Care Coordinator Relationship Specialty Start Date End Date Rafa Keen MD [address] [place] [address] PCP - General 11/15/20 documented as of this encounter
--- OUTSIDE RECORDS SUMMARY | 2024-11-17 09:11 | XMS_ITS | Encounter Summary ---
Author Organization [facility] Address [address] [place] [address] Phone Care Team Providers Care Web Press Operator Assistant Name Role Phone Rafa Keen MD Primary Care Provider [phone] Encounter Details Date Type Department Care Team (Late st Contact Info) Description 09/15/2024 Patient Risk Score ACO Care Management [address] [place] [address] Social History Tobacco Use Types [...] on filedocumented in this encounter Care Teams Web Press Operator Assistant Relationship Specialty Start Date End Date Rafa Keen MD [address] [facility] [place] [address] PCP - General 11/15/20 documented as of this encounter
--- OUTSIDE RECORDS SUMMARY | 2024-11-17 09:11 | XMS_ITS | Encounter Summary ---
Author Organization [facility] Address [address] [place] [address] Phone Care Team Providers Care Senior Operations Manager Name Role Phone Rafa Keen MD Primary Care Provider Encounter Details Date Type Department Care Team (Late st Contact Info) Description 05/16/2024 Patient Risk Score ACO Care Management [address] [place] [address] Social History Tobacco Use Types [...] filedocumented in this encounter Care Teams Senior Operations Manager Relationship Specialty Start Date End Date Rafa Keen MD [address] [facility] [place] [address] PCP - General 11/15/20 documented as of this encounter
--- OUTSIDE RECORDS SUMMARY | 2024-11-17 09:11 | XMS_ITS | Encounter Summary ---
Author Organization [facility] Address [address] [facility] [place] [address] Phone Care Team Providers Care Perennial House Manager Name Role Phone Rafa Keen MD Primary Care Provider [phone] Encounter Details Date Type Department Care Team (Late st Contact Info) Description 04/18/2024 Patient Risk Score ACO Care Management [address] [place] [address] Social History Tobacco Use Types [...] on filedocumented in this encounter Care Teams Perennial House Manager Relationship Specialty Start Date End Date Rafa Keen MD [address] [facility] [place] [address] PCP - General 11/15/20 documented as of this encounter
--- OUTSIDE RECORDS SUMMARY | 2024-11-17 09:11 | XMS_ITS | Encounter Summary ---
Author Organization [facility] Address [address] [facility] [place] [address] Phone Care Team Providers Care Worm Grower Name Role Phone Rafa Keen MD Primary Care Provider [phone] Encounter Details Date Type Department Care Team (Late st Contact Info) Description 03/17/2023 Patient Risk Score ACO Care Management [address] [place] [address] Social History Tobacco Use Types [...] on filedocumented in this encounter Care Teams Worm Grower Relationship Specialty Start Date End Date Rafa Keen MD [address] [facility] [place] [address] PCP - General 11/15/20 documented as of this encounter
--- OUTSIDE RECORDS SUMMARY | 2024-11-17 09:11 | XMS_ITS | Encounter Summary ---
Author Organization [facility] Address [address] [facility] [place] [address] Phone Care Team Providers Care Mash Tub Cooker Name Role Phone Rafa Keen MD Primary Care Provider [phone] Encounter Details Date Type Department Care Team (Late st Contact Info) Description 04/18/2023 Patient Risk Score ACO Care Management [address] [place] [address] Social History Tobacco Use Types [...] on filedocumented in this encounter Care Teams Mash Tub Cooker Relationship Specialty Start Date End Date Rafa Keen MD [address] [place] [address] PCP - General 11/15/20 documented as of this encounter
--- OUTSIDE RECORDS SUMMARY | 2024-11-17 09:11 | XMS_ITS | Encounter Summary ---
Author Organization [facility] Address [address] [facility] [place] [address] Phone Care Team Providers Care Fruit Raiser Name Role Phone Rafa Keen MD Primary Care Provider [phone] Encounter Details Date Type Department Care Team (Late st Contact Info) Description 08/16/2024 Patient Risk Score ACO Care Management [address] [place] [address] Social History Tobacco Use Types [...] on filedocumented in this encounter Care Teams Fruit Raiser Relationship Specialty Start Date End Date Rafa Keen MD [address] [facility] [address] PCP - General 11/15/20 documented as of this encounter
--- OUTSIDE RECORDS SUMMARY | 2024-11-17 09:11 | XMS_ITS | Encounter Summary ---
Author Organization [facility] Address [address] [facility] [place] [address] Phone Care Team Providers Care Systems Test Engineer Name Role Phone Rafa Keen MD Primary Care Provider [phone] Encounter Details Date Type Department Care Team (Late st Contact Info) Description 08/17/2023 Patient Risk Score ACO Care Management [address] [place] [address] Social History Tobacco Use Types [...] on filedocumented in this encounter Care Teams Systems Test Engineer Relationship Specialty Start Date End Date Rafa Keen MD [address] [facility] [place] [address] PCP - General 11/15/20 documented as of this encounter
--- OUTSIDE RECORDS SUMMARY | 2024-11-17 09:11 | XMS_ITS | Encounter Summary ---
Author Organization [facility] Address [address] [facility] [place] [address] Phone Care Team Providers Care After School Teacher Name Role Phone Rafa Keen MD Primary Care Provider [phone] Encounter Details Date Type Department Care Team (Late st Contact Info) Description 06/17/2023 Patient Risk Score ACO Care Management [address] [place] [address] Social History Tobacco Use Types [...] on filedocumented in this encounter Care Teams After School Teacher Relationship Specialty Start Date End Date Rafa Keen MD [address] [place] [address] PCP - General 11/15/20 documented as of this encounter
--- OUTSIDE RECORDS SUMMARY | 2024-11-17 09:12 | XMS_ITS | Encounter Summary ---
Author Organization [facility] Address [address] [facility] [place] [address] Phone Care Team Providers Care Telemarketing Fundraiser Name Role Phone Rafa Keen MD Primary Care Provider [phone] Encounter Details Date Type Department Care Team (Late st Contact Info) Description 10/15/2022 Patient Risk Score ACO Care Management [address] [place] [address] Social History Tobacco Use Types [...] on filedocumented in this encounter Care Teams Telemarketing Fundraiser Relationship Specialty Start Date End Date Rafa Keen MD [address] [facility] [place] [address] PCP - General 11/15/20 documented as of this encounter
--- OUTSIDE RECORDS SUMMARY | 2024-11-17 09:12 | XMS_ITS | Encounter Summary ---
Author Organization [facility] Address [address] [facility] [place] [address] Phone Care Team Providers Care Engraver Set Up Operator Name Role Phone Rafa Keen MD Primary Care Provider [phone] Encounter Details Date Type Department Care Team (Late st Contact Info) Description 01/15/2023 Patient Risk Score ACO Care Management [address] [place] [address] Social History Tobacco Use Types [...] on filedocumented in this encounter Care Teams Engraver Set Up Operator Relationship Specialty Start Date End Date Rafa Keen MD [address] [facility] [place] [address] PCP - General 11/15/20 documented as of this encounter
--- OUTSIDE RECORDS SUMMARY | 2024-11-17 09:12 | XMS_ITS | Clinical Summary ---
Author Organization [facility] Address [id number] [address] [place] [address] Care Team Providers Care Press Tender Smoke Signal Name Role Phone Unavailable Primary Care Provider Unavailabl e Social History Tobacco Use Types Packs/Day Years Used Date Smoking Tobacco: Never Assessed Childcare Answer Date Recorded Childcare Unknown 08/24/2018 Employment Answer Date Recorded Employment Unknown 08/24/2018 Sex and Gender Information Value Date Recorded Sex Assigned at Not on file Legal Sex Male 11:46 AM EDT Gender Identity Not on file Sexual Orientation Not on file Plan of Treatment Not on file Medical Devices Not on file
--- OUTSIDE RECORDS SUMMARY | 2024-11-17 09:12 | XMS_ITS | Encounter Summary ---
Author Organization [facility] Address [address] [facility] [place] [address] Phone Care Team Providers Care Test Specialist Name Role Phone Rafa Keen MD Primary Care Provider [phone] Encounter Details Date Type Department Care Team (Late st Contact Info) Description 02/14/2023 Patient Risk Score ACO Care Management [address] [place] [address] Social History Tobacco Use Types [...] on filedocumented in this encounter Care Teams Test Specialist Relationship Specialty Start Date End Date Rafa Keen MD [address] [facility] [place] [address] PCP - General 11/15/20 documented as of this encounter
--- OUTSIDE RECORDS SUMMARY | 2024-11-17 09:12 | XMS_ITS | Encounter Summary ---
Author Organization [facility] Address [address] [facility] [address] Phone Care Team Providers Care Scalemaker Name Role Phone Rafa Keen MD Primary Care Provider Encounter Details Date Type Department Care Team (Late st Contact Info) Description 09/16/2023 Patient Risk Score ACO Care Management [address] [place] [address] Social History Tobacco Use Types [...] on filedocumented in this encounter Care Teams Scalemaker Relationship Specialty Start Date End Date Rafa Keen MD [address] [facility] [place] [address] PCP - General 11/15/20 documented as of this encounter
--- OUTSIDE RECORDS SUMMARY | 2024-11-17 09:12 | XMS_ITS | Encounter Summary ---
Author Organization [facility] Address [address] [facility] [place] [address] Phone Care Team Providers Care Feed Blender Name Role Phone Rafa Keen MD Primary Care Provider [phone] Encounter Details Date Type Department Care Team (Late st Contact Info) Description 11/15/2022 Patient Risk Score ACO Care Management [address] [place] [address] Social History Tobacco Use Types [...] on filedocumented in this encounter Care Teams Feed Blender Relationship Specialty Start Date End Date Rafa Keen MD [address] [facility] [place] [address] PCP - General 11/15/20 documented as of this encounter
--- OUTSIDE RECORDS SUMMARY | 2024-11-17 09:12 | XMS_ITS | Encounter Summary ---
Author Organization [facility] Address [address] [place] [address] Phone Care Team Providers Care Gas Turbine Mechanic Name Role Phone Rafa Keen MD Primary Care Provider [phone] Encounter Details Date Type Department Care Team (Late st Contact Info) Description 09/14/2022 Patient Risk Score ACO Care Management [address] [place] [address] Social History Tobacco Use Types [...] on filedocumented in this encounter Care Teams Gas Turbine Mechanic Relationship Specialty Start Date End Date Rafa Keen MD [address] [facility] [place] [address] PCP - General 11/15/20 documented as of this encounter
--- OUTSIDE RECORDS SUMMARY | 2024-11-17 09:12 | XMS_ITS | Encounter Summary ---
Author Organization [facility] Address [address] [facility] [place] [address] Phone Care Team Providers Care Edger Saw Operator Name Role Phone Rafa Keen MD Primary Care Provider [phone] Encounter Details Date Type Department Care Team (Late st Contact Info) Description 12/15/2022 Patient Risk Score ACO Care Management [address] [place] [address] Social History Tobacco Use Types [...] on filedocumented in this encounter Care Teams Edger Saw Operator Relationship Specialty Start Date End Date Rafa Keen MD [address] [facility] [place] [address] PCP - General 11/15/20 documented as of this encounter
--- OUTSIDE RECORDS SUMMARY | 2024-11-17 09:12 | XMS_ITS | Clinical Summary ---
Author Organization [facility] Address [address] [place] [address] Care Team Providers Care Proposal Engineer Name Role Phone Unavailable Primary Care Provider Unavailabl e Social History Tobacco Use Types Packs/Day Years Used Date Smoking Tobacco: Never Assessed Sex and Gender Information Value Date Recorded Sex Assigned at Not on file Legal Sex Male 9:32 PM EDT Gender Identity Not on file Sexual Orientation Not on file Plan of Treatment Not on file
--- OUTSIDE RECORDS SUMMARY | 2024-11-17 09:12 | XMS_ITS | Encounter Summary ---
Author Organization [facility] Address [address] [facility] [place] [address] Phone Care Team Providers Care Managing Partner [employer] Name Role Phone Rafa Keen MD Primary Care Provider [phone] Encounter Details Date Type Department Care Team (Late st Contact Info) Description 11/17/2023 Patient Risk Score ACO Care Management [address] [place] [address] Social History Tobacco Use Types [...] on filedocumented in this encounter Care Teams Managing Partner [employer] Relationship Specialty Start Date End Date Rafa Keen MD [address] [facility] [place] [address] PCP - General 11/15/20 documented as of this encounter
--- OUTSIDE RECORDS SUMMARY | 2024-11-17 09:12 | XMS_ITS | Encounter Summary ---
Author Organization [facility] Address [address] [facility] [place] [address] Phone Care Team Providers Care Clinical Research Administrator Name Role Phone Rafa Keen MD Primary Care Provider [phone] Encounter Details Date Type Department Care Team (Late st Contact Info) Description 12/17/2023 Patient Risk Score ACO Care Management [address] [place] [address] Social History Tobacco Use Types [...] on filedocumented in this encounter Care Teams Clinical Research Administrator Relationship Specialty Start Date End Date Rafa Keen MD [address] [facility] [address] PCP - General 11/15/20 documented as of this encounter
--- OUTSIDE RECORDS SUMMARY | 2024-11-17 09:12 | XMS_ITS | Encounter Summary ---
Author Organization [facility] Address [address] [facility] [place] [address] Phone Care Team Providers Care Pole Inspector Name Role Phone Rafa Keen MD Primary Care Provider [phone] Encounter Details Date Type Department Care Team (Late st Contact Info) Description 10/17/2023 Patient Risk Score ACO Care Management [address] [place] [address] Social History Tobacco Use Types [...] on filedocumented in this encounter Care Teams Pole Inspector Relationship Specialty Start Date End Date Rafa Keen MD [address] [facility] [place] [address] PCP - General 11/15/20 documented as of this encounter
--- OUTSIDE RECORDS SUMMARY | 2024-11-17 09:12 | XMS_ITS | Patient Health Record ---
Author Organization [facility] [place] Address [address] [place] [address] Care Team Providers Care Clarifying Plant Operator Name Role Phone Tomás Peña Primary Care Provider Allergies Allergen (clinical drug ingredient) Drug/Non Drug Allergy documented on EMR Reaction Allergy Type Onset Date Status phentermine Adipex-P hallucinations Drug Allergy Active pantoprazole Protonix Thyroid Swelling Drug Allergy Active Reason For Referral No Information Medications Medication SIG (Take, Route, Frequency, Duration) [...] Problem Status W/U Status Risk Notes Problem Hyperglycemia due to type 2 diabetes mellitus (841679948053113) Type 2 diabetes mellitus with hyperglycemia (E11.65) Active confirmed Problem Asthma (823102490) Asthma (J45.909) Active conf irmed Problem Obesity (447419069) Obesity (E66.9) Active confirmed Problem Depression (501356261) Depression (F32.9) Active confirmed Problem Insomnia (986999558) Insomnia (G47.00) Active confirmed Problem Eczema (62495002) Eczema (L30.9) Active confirm ed Problem Migraine (10208571) Migraine (G43.909) Active confirmed Problem Acute sinusitis (24872610) Acute sinusitis (J01.90) Active confirmed Problem Disorder of lumbar disc (697273219) Lumbar disc disease (M51.9) Active confirmed Problem Displacement of lumbar intervertebral disc without myelopathy (50841841) Lumbar herniated disc (M51.26) Active confirmed Problem Chronic diarrhea (606094557) Chronic diarrhea (K52.9) Active confirmed Problem Well adult (173811994) Well adult (Z00.00) Active confirmed Problem Sciatica (14610308) Sciatica (M54.30) Active confirmed Problem Pain in limb (71432008) Pain in right lower leg (M79.661) Active confirmed Problem Psychosexual dysfunction associated with inhibited sexual excitement (924315776810916) 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) Active confirmed Problem Rosacea (468468816) Rosacea (L71.9) Active confirmed Problem Seasonal allergic rhinitis (989682440) Allergic rhinitis, seasonal (J30.2) Active confirmed Problem Strain of back muscle (998704097) Thoracic sprain (S23.9XXA) Active confirmed Problem Mass of head (053892813) Mass of head (R22.0) Active confirmed Problem Gastro-esophageal reflux disease (707842943) Gastro-esophagea l reflux disease (K21.9) Active confirmed Problem Viral exanthem (23740039) Other specified viral exanthemata (B08.8) Active confirmed Problem Pain in limb (27478238) Pain, hand joint (M79.643) Active confirmed Problem 374906750 Pure hypercholesterol emia, unspecified (E78.00) Active confirmed Problem Disease caused by Severe acute respiratory syndrome coronavirus 2 (disorder) (778201599) COVID-19 virus infection (U07.1) Active confirmed Problem Low back pain (240282934) Low back pain, unspecified (M54.50) Active confirmed Problem Depression (558902015) Depression (F32.A) Active confirmed Vital Signs Blood pressure diastolic 82 mm Hg 11/16/2024 Height 69 in 11/16/2024 Blood pressure systolic 124 mm Hg 11/16/2024 Weight 241.6 lbs 11/16/2024 BMI 35.67 kg/m2 11/16/2024 Encounters Encounter Location Date Provider Diagnosis [facility] [address] [place] [address] 05/05/2024 Tomás Hoy Acute bronchitis, unspecified organism J20.9 [address] [place] [address] 10/20/2024 Tomás Hoy Eczema L30.9 [address] [place] [address] 11/16/2024 Tomás Hoy Migraine G43.909 and Well adult Z00.00 Assessments Encounter Date Diagnosis (ICD Code) Assessment Notes Treatment Notes Treatment Clinical Notes Section Notes 05/05/2024 Acute bronchitis, unspecified organism (ICD-10 - J20.9) Rest and drink more liquids, especially water. You may use a humidifier or vaporizer to help keep the drainage moist. Bwwr-myd-iaohxbn Nasal Saline may help the stuffy and runny nose. Use Ibuprofen and or Tylenol as needed for fever, chills, body aches or pain. Children 5 years old should not be given aiaz-pdw-essorfy cough and cold medications such as guaifenesin and dextromethorphan. If you're over age 5, you may try evrh-fsi-emkkexa cold medications such as guaifenesin and dextromethorphan, [...] to the emergency room or call 911 10/20/2024 Eczema (ICD-10 - L30.9) 11/16/2024 Migraine (ICD-10 - G43.909) If imitrex not helping - calling back - needs MRI and try different meds 11/16/2024 Well adult (ICD-10 - Z00.00) Plan Of Treatment Pending Test Test Name Order Date CMP (COMPLETE METABOLIC PANEL) 3 HEMOGLOBIN A1C (GLYCO) 11/16/2024 HEMOGLOBIN A1C (GLYCO) 01/13/2023 INSULIN, TOTAL 11/16/2024 INSULIN, TOTAL 01/13/2023 LIPID PANEL (CHOL/TRIG/HDL/LDL) 11/17/19 25 LIPID PANEL (CHOL/TRIG/HDL/LDL) 01/14/20 23 CBC WITH DIFF 01/13/2023 PSA, PROSTATE-SPECIFIC ANTIGEN 3 LIPID PROFILE 01/13/2023 THYROID PANEL (T4/TSH/FREE T3) 3 THYROID PANEL (T4/TSH/FREE T3) 5 XR thoracic spine 3V 02/11/2023 CMP (COMP MET PRICE) w/eGFR CKD-EPI 2024 CBC WITH DIFF 11/16/2024 Insurance Providers Payer Name Payer Address Payer Phone Subscriber Number Group Number Insured Name Patient Relationship to Insured Coverage Start Date Coverage End Date [employer] PPO PLUS LOCAL PLAN [address] [place] [address] [id number] TroyRamila Spouse - patient is the spouse of the insured 3 Medications Administered Medication Instructions Date of Administration Dosage Notes Dexamethasone, 4mg/mL 10/20/2024 12 mg Medical (General) History Medical History History ICD Code COVID-19 virus infection U07.1 Other specified viral exanthemata B08.8 Mass of head R22.0 Gastro-esophageal reflux disease K21.9 Obesity E66.9 Low back pain, unspecified M54.50 Lumbar herniated disc M51.26 Sciatica M54.30 Pain in right lower leg M79.661 Lumbar disc disease M51.9 Chronic diarrhea K52.9 Type 2 diabetes mellitus with hyperglyce jeanmarie E11.65 Rosacea L71.9 Pain, hand joint M79.643 ED (erectile dysfunction) of non-organic origin F52.21 Allergic rhinitis, seasonal J30.2 Depression F32.9 Asthma J45.909 Surgical History Surgery Date(Month/Year) Lilly Teeth Extraction Clavicle Realignment Discectomy
--- OUTSIDE RECORDS SUMMARY | 2024-11-17 09:35 | XMS_ITS | CCD ---
Author Organization [facility] Care Team Providers Care Assistant Laboratory Director Name Role Phone Osmani Craig B Unavailable DEMETRIS, DR GOODRICH Primary Care Unavailable NILL, DR WRIGHT Admitting Unavailable NILL, DR WRIGHT Attending Unavailable NILL, DR WRIGHT Consulting Unavailable HOY, DR GOODRICH Primary Care Unavailable NILL, DR WRIGTH Admitting Unavailable NILL, DR WRIGHT Attending Unavailable NILL, DR WRIGHT Consulting Unavailable AGUBOSIM, HANS Consulting Unavailable IRENE HARRIS Consulting Unavailable GEORGIA, DR RENÉE Young Consulting Unavailable GEORGIA, DR RENÉE Young Admitting Unavailable DEMETRIS, DR GOODRICH Primary Care Unavailable GEORGIA, DR RENÉE Young Attending Unavailable GENEVA GALLAGHER Consulting Unavailable KARSON Avila Attending Provider Astrid Avila Unavailable Astrid Avila Attending Unavailable Astrid Avila Admitting Unavailable NO FAMILY, PHYSICIAN Primary Care Unavailable Allergies Allergy Classification Reported Allergen(s) Allergy Type Date of Onset Reaction(s) Facility (2 sources) pantoprazole Drug Allergy 0 neck swelling [facility] Rep[facility] (1 source) pantoprazole Drug Allergy neck swelling [employer] Other (1 source) Gluten Allergy to substance 5 Abdominal Pain [facility] Comment on above: celiac Medications Current Medications Medication Drug Class(es) Dates Sig (Normalized) Sig (Original) [id number] 200 actuat albuterol 0.09 mg/actuat metered dose inhaler (1 source) beta2-Adrenergic Agonist take 2 puff(s) by inhalation every four hours as needed Ventolin HFA 90 MCG/ACT 2 puffs as needed Inhalation every 4 hrs Active amoxicillin 500 mg oral capsule (1 source) Penicillin-class Antibacterial Start: 05-02-2024 take 1 capsule by mouth twice daily Amoxicillin 500 mg capsule Active 500 MG PO Twice daily May 02, 2024 12:00am citalopram 20 mg oral tablet (1 source) Serotonin Reuptake Inhibitor take 1 tablet by mouth every twenty-four hours CeleXA 20 MG 1 tablet Orally Once a day Active 12 hr dextromethorphan hydrobromide 60 mg / guaiFENesin 1200 mg extended release oral tablet (1 source) Uncompetitive E-hexcdu-U-aspartat e Receptor Antagonist, Sigma-1 Agonist Start: 05-02-2024 take 60-1200 mg by mouth every twelve hours Dextromethorphan -Guaifenesin (Mucinex Dm) 60-1,200 mg tablet extended release 12 hr Active 1 TAB PO Every 12 hours 14 May 02, 2024 12:00am ondansetron 8 mg oral tablet (1 source) Serotonin-3 Receptor Antagonist Start: 05-02-2024 take 1 tablet by mouth every eight hours as needed for nausea and vomiting Ondansetron Hcl 8 mg tablet Active 8 MG PO Q8H as needed for nausea and vomiting 21 May 02, 2024 12:00am predniSONE 20 mg oral tablet (1 source) Start: 08-19-2022 take 1 tablet by mouth every twelve hours predniSONE 20 MG 1 tablet Orally bid for 5 day(s) Aug, Active Completed/Discontinued Medications Medication Drug Class(es) Dates Sig (Normalized) Sig (Original) cetirizine hydrochloride 10 mg oral tablet (1 source) Histamine-1 Receptor Antagonist take 1 tablet by mouth once daily ZyrTEC Allergy 10 MG 1 tablet Orally Once a day Not-Taking fluticasone propionate 0.05 mg/actuat metered dose nasal spray (1 source) Corticosteroid Start: 07-30-2015 take 1 spray(s) nasal route once daily Flonase 50 MCG/ACT 1 spray in each nostril Nasally Once a day for 30 day(s) July, Not-Taking Ibuprofen-800 mg 800 mg (1 source) Start: 02-25-2016 take 1 tablet by mouth every six hours as needed for pain Ibuprofen-800 mg 800 mg 1 tab orally every six hours prn pain Feb, Not-Taking metroNIDAZOLE 0.01 mg/mg topical gel (1 source) Nitroimidazole Antimicrobial Metrogel 1 % 1 application to affected area Externally Once a day Not-Taking Toradol 30 mg/ml (1 source) Start: 08-19-2022 Toradol 30 mg/ml Aug, 30 mg triamcinolone acetonide 40 mg/ml injectable suspension (5 sources) Corticosteroid Start: 08-19-2022 Kenalog-40 Aug, 40 mg Start: 03-27-2016 KENALOG - 10 m g Mar, 1.0 mL Start: 12-02-2015 KENALOG - 10 m g Nov, 40 mg Start: 07-30-2015 KENALOG - 10 m g July, 2 mL Start: 04-26-2015 KENALOG - 10 m g Apr, 2 mL Problems Active Problems Problem Classification Problem Date Documented Da te Episodic/Chronic Anxiety disorders (1 source) Anxiety; Translations: [Anxiety disorder, unspecified] 05-02-2024 Chronic Asthma (3 sources) Unspecified asthma, uncomplicated; Translations: [Mild intermittent asthma] Onset: 06-24-2021 05-02-2024 Chronic 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; Translations: [OTH SPEC CONGEN MALFORM INTESTINE] Onset: 06-24-2021 Chronic Esophageal disorders (4 sources) Gastro-esophageal reflux disease without esophagitis; Translations: [GERD WITHOUT ESOPHAGITIS] Onset: 06-18-2021 Chronic Gastritis and duodenitis (1 source) Unspecified chronic gastritis without bleeding; Translations: [UNS CHRONIC GASTRITIS W/O BLEEDING] Onset: 06-24-2021 Chronic Influenza (1 source) Influenza due to other identified influenza virus with other respiratory manifestations; Translations: [Influenza with other respiratory manifestations] 05-02-2024 Episodic Nonspecific chest pain (4 sources) Precordial pain; Translations: [Chest pain, unspecified] Onset: 11-07-2021 Episodic Other aftercare (1 source) Other alf (current) drug therapy; Translations: [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] Onset: 11-10-2021 Episodic Other gastrointestinal disorders (1 source) Celiac disease; Translations: [Celiac disease] 05-02-2024 Chronic Other lower respiratory disease (1 source) Shortness of breath; Translations: [SHORTNESS OF BREATH] Onset: 11-10-2021 Episodic Other non-traumatic joint disorders (1 source) Pain in right hip Episodic Other nutritional; endocrine; and metabolic disorders (1 source) Obesity, unspecified; Translations: [OBESITY UNSPECIFIED] Onset: 06-24-2021 Chronic Other upper respiratory disease (1 source) Seasonal allergic rhinitis; Translations: [Other seasonal allergic rhinitis] Chronic Other upper respiratory disease (1 source) Allergic rhinitis; Translations: [Allergic rhinitis, unspecified] Chronic Other upper respiratory infections (1 source) Acute pharyngitis, unspecified; Translations: [Acute pharyngitis] 05-02-2024 Episodic Sprains and strains (1 source) Strain of muscle, fascia and tendon of right hip, initial encounter Episodic Unclassified (1 source) PERSONAL HISTORY OF COVID-19; Translations: [PERSONAL HISTORY OF COVID-19] Onset: 11-10-2021 Unclassified (1 source) CONTACT W/AND (SUSP) EXPOS COVID-19; Translations: [CONTACT W/AND (SUSP) EXPOS COVID-19] Onset: 06-18-2021 Unclassified (1 source) Pain in right hip; Translations: [Pain in right hip] Onset: 08-19-2022 Past or Other Problems Problem Classification Problem Date Documented Date Episodic/Chronic Diabetes mellitus without complication (1 source) Prediabetes; Translations: [PREDIABETES] Onset: 06-24-2021 Episodic Gastritis and duodenitis (1 source) Duodenitis without bleeding; Translations: [DUODENITIS WITHOUT BLEEDING] Onset: 06-24-2021 Episodic Nausea and vomiting (1 source) Nausea with vomiting, unspecified; Translations: [NAUSEA WITH VOMITING UNSPECIFIED] Onset: 06-24-2021 Episodic Noninfectious gastroenteritis (1 source) Noninfective gastroenteritis and colitis, unspecified; Translations: [NONINFECTIVE GE AND COLITIS UNS] Onset: 06-24-2021 Episodic Residual codes; unclassified (1 source) Family history of other diseases of the digestive system; Translations: [FAM HX OTH DISEASES DIGESTIVE SYS] Onset: 06-24-2021 Episodic Results Test Name Value Interpretation Reference Range Facility No Panel InformationOrdered By: Nadege Gonzalez on 05-02-2024 Quick Strep (POC) [facility] XR hip RT min 2V(w/wo pelvis )*on 08-19-2022 XR hip RT min 2V(w/wo pelvis)* [facility] [address] [address] XRay Report Signed Patient: Betina Troy JR MR#: [id number] : 1985 Acct:[id number] Age/Sex: 36 / M ADM Date: 08/19/22 Loc: XDUCLY Room: Type: [facility] Attending Dr: Astrid TY Copies to: KARSON Patton Ordering Provider: KARSON Patton Date of Service: 08/19/22 XR/XR hip RT min 2V(w/wo pelvis)*: RIGHT HIP PAIN XR hip RT min 2V(w/wo pelvis)* 08/19/2022 6:09 PM SIGNS AND SYMPTOMS: Right hip pain anteriorly and laterally PROTOCOL: Frontal radiograph the pelvis with frontal and frog-leg views of the right hip COMPARISON: None FINDINGS: The bony ring of the pelvis is intact. The weightbearing joint spaces are grossly preserved. There is no fracture or dislocation. XR/XR hip RT min 2V(w/wo pelvis)* IMPRESSION: No acute bony injury or significant degenerative change. Impression dictated by: Renée Simpson M.D.08/19/2022 6:11 PM Dictation Location: [place] [address] Transcribed By: [facility] 08/19/221810 Dictated By: Renée Simpson II, MD 08/19/221810 Signed By: 08/19/221810 Normal [facility] XR hip RT min 2V(w/wo pelvis)* [facility] [employer] Other XR hip RT min 2V(w/wo pelvis)* [facility] [employer] Other XR hip RT min 2V(w/wo pelvis)* [address] [facility] [employer] Other XR hip RT min 2V(w/wo pelvis)* [place] [address] [email or web address] [facility] [employer] Other XR hip RT min 2V(w/wo pelvis)* XRay Report [employer] Other XR hip RT min 2V(w/wo pelvis)* Signed [employer] Other XR hip RT min 2V(w/wo pelvis)* Patient: Betina Troy MR#: [id number] [employer] Other XR hip RT min 2V(w/wo pelvis)* : 1985 Acct:[id number] [employer] Other XR hip RT min 2V(w/wo pelvis)* Age/Sex: 36 / M ADM Date: 08/19/22 [employer] Other XR hip RT min 2V(w/wo pelvis)* Loc: XDUCLY Room: Type: [facility] [employer] Other XR hip RT min 2V(w/wo pelvis)* Attending Dr: Astrid TY [employer] Other XR hip RT min 2V(w/wo pelvis)* Copies to: KARSON Patton [employer] Other XR hip RT min 2V(w/wo pelvis)* Ordering Provider: KARSON Patton [employer] Other XR hip RT min 2V(w/wo pelvis)* Date of Service: 08/19/22 [employer] Other XR hip RT min 2V(w/wo pelvis)* XR/XR hip RT min 2V(w/wo pelvis)*: RIGHT HIP PAIN [employer] Other XR hip RT min 2V(w/wo pelvis)* XR hip RT min 2V(w/wo pelvis)* 08/19/2022 6:09 PM [employer] Other XR hip RT min 2V(w/wo pelvis)* SIGNS AND SYMPTOMS: Right hip pain anteriorly and laterally [employer] Other XR hip RT min 2V(w/wo pelvis)* PROTOCOL: Frontal radiograph the pelvis with frontal and frog-leg views of the right hip [employer] Other XR hip RT min 2V(w/wo pelvis)* COMPARISON: None [employer] Other XR hip RT min 2V(w/wo pelvis)* FINDINGS: [employer] Other XR hip RT min 2V(w/wo pelvis)* The bony ring of the pelvis is intact. The weightbearing joint spaces are grossly preserved. There [employer] Other XR hip RT min 2V(w/wo pelvis)* is no fracture or dislocation. [employer] Other XR hip RT min 2V(w/wo pelvis)* XR/XR hip RT min 2V(w/wo pelvis)* [employer] Other XR hip RT min 2V(w/wo pelvis)* IMPRESSION: [employer] Other XR hip RT min 2V(w/wo pelvis)* No acute bony injury or significant degenerative change. [employer] Other XR hip RT min 2V(w/wo pelvis)* Impression dictated by: Renée Simpson M.D.08/19/2022 6:11 PM [employer] Other XR hip RT min 2V(w/wo pelvis)* Dictation Location: [place] [address] [employer] Other XR hip RT min 2V(w/wo pelvis)* Transcribed By: NEHAL 08/19/221810 [employer] Other XR hip RT min 2V(w/wo pelvis)* Dictated By: Renée Simpson II, MD 08/19/221810 [employer] Other XR hip RT min 2V(w/wo pelvis)* Signed By: [employer] Other XR hip RT min 2V(w/wo pelvis)* 08/19/22 1811 [employer] Other CBC AUTO DIFFon 11-07-2021 BASO # 0.1 103/ul Normal 0.0-0.1 [facility] Comment on above: Performed By: #### C BC #### [facility] [address] [place] [address] Dr. Becky Tian Basophils/100 WBC (Bld) 0.3 % Normal 0.2-2.0 [facility] Comment on above: Performed By: #### C BC #### [facility] [address] [place] [address] Dr. Becky Tian EO # 0.0 103/ul Normal 0.0-0.7 [facility] Comment on above: Performed By: #### C BC #### [facility] [address] [place] [address] Dr. Becky Tian Eosinophils/100 WBC (Bld) 0.1 % Critically low 0.9-7.0 [facility] Comment on above: Performed By: #### C BC #### [facility] [address] [place] [address] Dr. Becky Tian Erythrocyte distribution width (RBC) [Ratio] 12.6 % Normal 11.0-15.0 [facility] Comment on above: Performed By: #### C BC #### [facility] [address] [place] [address] Dr. Becky Tian Hematocrit (Bld) [Volume fraction] 44.6 % Normal 42.0-54.0 [facility] Comment on above: Performed By: #### C BC #### [facility] [address] [place] [address] Dr. Becky Tian Hemoglobin (Bld) [Mass/Vol] 14.8 g/dL Normal 14.0-18.0 [facility] Comment on above: Performed By: #### C BC #### [facility] [address] [place] [address] Dr. Becky Tian IG # 0.24 10e3/ul Critically high 0.00-0.03 [facility] Comment on above: Performed By: #### C BC #### [facility] [address] [place] [address] Dr. Becky Tian IG % 1.5 % Critically high 0.0-0.5 [facility] Comment on above: Performed By: #### C BC #### [facility] [address] [place] [address] Dr. Becky Tian LYMPH # 3.1 103/ul Normal 1.2-3.8 [facility] Comment on above: Performed By: #### C BC #### [facility] [address] [place] [address] Dr. Becky Tian Lymphocytes/100 WBC (Bld) 19.4 % Critically low 20.5-60.0 [facility] Comment on above: Performed By: #### C BC #### [facility] [address] [place] [address] Dr. Becky Tian MANUAL DIFF REQ NO Normal [facility] Comment on above: Performed By: #### C BC #### [facility] [address] [place] [address] Dr. Becky Tian MCH (RBC) [Entitic mass] 27.6 pg Normal 25.9-34.0 [facility] Comment on above: Performed By: #### C BC #### [facility] [address] [place] [address] Dr. Becky Tian MCHC (RBC) [Mass/Vol] 33.2 g/dL Normal 29.9-35.2 [facility] Comment on above: Performed By: #### C BC #### [facility] [address] [place] [address] Dr. Becky Tian MCV (RBC) [Entitic vol] 83.2 fL Normal 80.0-94.0 [facility] Comment on above: Performed By: #### C BC #### [facility] [address] [place] [address] Dr. Becky Tian MONO # 1.4 103/ul Critically high 0.3-0.8 [facility] Comment on above: Performed By: #### C BC #### [facility] [address] [place] [address] [address] Becky Tian Monocytes/100 WBC (Bld) 8.8 % Normal 1.7-12.0 [facility] Comment on above: Performed By: #### C BC #### [facility] [address] [place] [address] [address] Becky Tian NEUT # 11.2 103/ul Critically high 1.4-6.5 [facility] Comment on above: Performed By: #### C BC #### [facility] [address] [place] [address] [address] Becky Tian Neutrophils/100 WBC (Bld) 69.9 % Normal 43.0-75.0 [facility] Comment on above: Performed By: #### C BC #### [facility] [address] [place] [address] Dr. Becky Tian Platelet mean volume (Bld) [Entitic vol] 9.0 fL Critically low 9.5-13.5 [facility] Comment on above: Performed By: #### C BC #### [facility] [address] [place] [address] Dr. Becky Tian PLT 483 103/ul Critically high 150-450 [facility] Comment on above: Performed By: #### C BC #### [facility] [address] [place] [address] Dr. Becky Tian RBC 5.36 106/ul Normal 4.70-6.10 [facility] Comment on above: Performed By: #### C BC #### [facility] [address] [place] [address] Dr. Becky Tian WBC 16.0 103/ul Critically high 4.0-11.0 [facility] Comment on above: Performed By: #### C BC #### [facility] [address] [place] [address] Dr. Becky Tian D-DIMERon 11-07-2021 D-DIMER <0.19 Normal <=0.59 [facility] Comment on above: Performed By: #### D DIM #### [facility] [address] [place] [address] Dr. Becky Tian D-DIMER COMMENTS SEE BELOW Normal [facility] Comment on above: Result Comment: Incr eases in D-Dimer concentration observed with thromboembolic events can be variable due to localization, size, and age of the thrombus. Therefore, a thromboembolic event cannot be diagnosed with certainty on the basis of the reference range. D-Dimers may also be elevated for a variety of disorders including: advanced age, , coronary disease, cancer, liver disease, infection, inflammation, hematoma, DIC, trauma, post-surgery, diabetes, thrombolytic or anticoagulant therapy, stress, and generalized hospitalization. Performed By: #### D DIM #### [facility] [address] [place] [address] Dr. Becky Tian PROF 14(COMP METB)on 022 Albumin [Mass/Vol] 3.7 g/dL Normal 3.4-5.0 [facility] Comment on above: Performed By: #### H HALEY, CMP #### [facility] [address] [place] [address] Dr. Becky Tian Albumin/Globulin [Mass ratio] 0.9 {ratio} Normal [facility] Comment on above: Performed By: #### H HALEY, CMP #### [facility] [address] [place] [address] Dr. Becky Tian ALP [Catalytic activity/Vol] 84 U/L Normal 46-116 [facility] Comment on above: Performed By: #### H HALEY, CMP #### [facility] [address] [place] [address] Dr. Becky Tian ALT [Catalytic activity/Vol] 72 U/L Critically high 16-63 [facility] Comment on above: Performed By: #### H RODNEYPN, CMP #### [facility] [address] [place] [address] Dr. Becky Tian Anion gap [Moles/Vol] 13.5 mmol/L Normal [facility] Comment on above: Performed By: #### H RODNEYPN, CMP #### [facility] [address] [place] [address] [address] Becky Tian AST [Catalytic activity/Vol] 35 U/L Normal 15-37 [facility] Comment on above: Performed By: #### H STROPN, CMP #### [facility] [address] [place] [address] Dr. Becky Tian Bilirubin [Mass/Vol] 0.4 mg/dL Normal 0.2-1.0 [facility] Comment on above: Performed By: #### H STROPN, CMP #### [facility] [address] [place] [address] Dr. Becky Tian Calcium [Mass/Vol] 8.8 mg/dL Normal 8.5-10.1 [facility] Comment on above: Performed By: #### H STROPN, CMP #### [facility] [address] [place] [address] Dr. Becky Tian Chloride [Moles/Vol] 101 mmol/L Normal 98-107 [facility] Comment on above: Performed By: #### H STROPN, CMP #### [facility] [address] [place] [address] Dr. Becky Tian CO2 [Moles/Vol] 28.1 mmol/L Normal 21.0-32.0 [facility] Comment on above: Performed By: #### H STROPN, CMP #### [facility] [address] [place] [address] Dr. Becky Tian Creatinine [Mass/Vol] 0.91 mg/dL Normal 0.70-1.30 [facility] Comment on above: Performed By: #### H STROPN, CMP #### [facility] [address] [place] [address] Dr. Becky Tian EGFR-AF JORDANIAN >60 Normal >=60 [facility] Comment on above: Performed By: #### H STROPN, CMP #### [facility] [address] [place] [address] Dr. Becky Tian EGFR-NON AF JORDANIAN >60 Normal >=60 [facility] Comment on above: Performed By: #### H STROPN, CMP #### [facility] [address] [place] [address] [address] Becky Tian Globulin (S) [Mass/Vol] 3.9 g/dL Normal [facility] Comment on above: Performed By: #### H RODNEYPN, CMP #### [facility] [address] [place] [address] [address] Becky Tian Glucose [Mass/Vol] 137 mg/dL Critically high 74-106 [facility] Comment on above: Performed By: #### H STROPN, CMP #### [facility] [address] [place] [address] Dr. Becky Tian Potassium [Moles/Vol] 3.6 mmol/L Normal 3.5-5.1 [facility] Comment on above: Performed By: #### H RODNEYPN, CMP #### [facility] [address] [place] [address] Dr. Becky Tian Protein [Mass/Vol] 7.6 g/dL Normal 6.4-8.2 [facility] Comment on above: Performed By: #### H STROPN, CMP #### [facility] [address] [place] [address] Dr. Becky Tian Sodium [Moles/Vol] 139 mmol/L Normal 136-145 [facility] Comment on above: Performed By: #### H STROPN, CMP #### [facility] [address] [place] [address] [address] Becky Tian Urea nitrogen [Mass/Vol] 26.0 mg/dL Critically high 7.0-18.0 [facility] Comment on above: Performed By: #### H STROPN, CMP #### [facility] [address] [place] [address] Dr. Becky Tian Urea nitrogen/Creatinine [Mass ratio] 28.6 mg/mg Normal [facility] Comment on above: Performed By: #### H RODNEYPN, CMP #### [facility] [address] [place] [address] Dr. Becky Tian TROPONIN, HIGH SENSITIVITYon 11-07-2021 HSTROP 4.0 pg/mL Normal 4.0-76.1 [facility] Comment on above: Result Comment: CUT- OFF POINTS HAVE BEEN ESTABLISHED BASED ON THE FOURTH UNIVERSAL DEFINITIONS OF MYOCARDIAL INFARCTION. THE UPPER REFERENCE LIMIT (URL) OF TROPONIN, DEFINED THE 99TH PERCENTILE OF cTnI DISTRIBUTION IN A REFERENCE POPULATION, HAS BEEN CONFIRMED THE DECISION THRESHOLD FOR CA DIAGNOSIS. Performed By: #### H STROPN, CMP #### [facility] [address] [place] [address] [address] Becky Tian XR CHEST 1 Von 11-07-2021 XR CHEST 1 V EXAMINATION: XR CHEST 1 V HISTORY: Shortness of breath COMPARISON: Chest x-rays 06/27/2016 TECHNIQUE: Portable chest FINDINGS: The lung parenchyma is free of consolidation or infiltrate. No pneumothorax or pleural effusion. The cardiac, mediastinal and hilar contours are normal. The visualized osseous structures exhibit no gross abnormality. IMPRESSION: No acute cardiopulmonary abnormality. Electronically authenticated by: GENEVA GALLAGHER Date: 2021-11-07 21:04 Normal [facility] Pathology Noteon 06-20-2021 Pathology Note [id number] 198#1.00CD:127 Normal [facility] Outside Colonoscopyon 2021 Outside Colonoscopy [id number] 5#1.00CD:127 Normal [facility] POINT OF CARE GLUCOSEon Glucose [Mass/Vol] 93 mg/dL Normal 74-106 [facility] Comment on above: Performed By: #### P OCGLUC #### [facility] [address] [place] [address] Dr. Becky Tian Lab Reportson 06-16-2021 Lab Reports [id number] 3#1.00CD:127 Normal [facility] Covid-19 PCR (CVDTBH)on SARS-CoV-2 (COVID-19) RNA CE+probe Ql (Unsp spec) Not detected Normal NOT DETECTED [facility] Comment on above: Result Comment: This test is not yet approved or cleared by the [place] FDA. When there are no FDA-approved or cleared tests available, and other criteria are met, FDA can make tests available under an emergency access mechanism called an Emergency Use Authorization (EUA). The EUA for this test is supported by the [employer] Operator of Health and Human Service's (HHS's) declaration that circumstances exist to justify the emergency use of in vitro diagnostics for the detection and/or diagnosis of the virus that causes COVID-19. This EUA will remain in effect (meaning this test can be used) for the duration of the COVID-19 declaration justifying emergency of IVDs, unless it is terminated or revoked by FDA (after which the test may no longer be used). When diagnostic testing is negative, the possibility of a false negative should be considered in the context of a patient's recent exposures and the presence of clinical signs and symptoms consistent with SARS-CoV-2. Performed By: #### [facility] #### [facility] [address] [place] [address] Dr. Becky Tian Formson 06-09-2021 Forms [id number] E3#[id number]:127 Normal [facility] Ambulatory Visit Summaryon 0 06-06-2021 Ambulatory Visit Summary BETINA TROY Otilio :1985 Visit Date:06/06/2021 Ambulatory Visit Instructions Your Diagnosis Chronic diarrhea GERD (gastroesophageal reflux disease) Nausea & vomiting Family history of Crohn's disease Your Care Team Attending Physician - Kyle CAREY MD Primary Care Physician - Kp Peña MD Referring Physician - Kp Peña MD This Is Your Medications List Contact prescribing physician if questions or concerns albuterol (Ventolin HFA 90 mcg/inh Aerosol) cholestyramine (Questran Light 4 g/5 g Oral Packet) mirtazapine (Remeron 30 mg Tab) tizanidine (tiZANidine 4 mg Tab) Procedures Performed Lumbar discectomy (05/02/2018), Closed fracture of clavicle, Extraction of wisdom tooth. Discharge Vitals Heart Rate (Peripheral) 80 Respiratory Rate 16 Blood Pressure 122/86 Height 175.3 cm Height 175.26 cm Weight 107.9 kg Weight 107.9 kg BMI 35.13 Medications What How Much When Instructions Unchanged albuterol (Ventolin HFA 90 mcg/ inh Aerosol) 2 Puffs Inhalation 4 times a day as needed for as needed for wheezing Contact prescribing physician if questions or concerns Unchanged cholestyramine (Questran Light 4 g/ 5 g Oral Packet) 4 Gram By Mouth 2 times a day Contact prescribing physician if questions or concerns Unchanged mirtazapine (Remeron 30 mg Tab) 1 Tablets By Mouth Once a day (at bedtime) Contact prescribing physician if questions or concerns Unchanged tizanidine (tiZANidine 4 mg Tab) 2 Tablets By Mouth At bedtime Contact prescribing physician if questions or concerns Allergies No Known Allergies No Known Medication Allergies Problems Ongoing - Any problem that you are currently receiving treatment for. Asthma BMI 35.0-35.9,adult Chronic diarrhea Depression Diabetes Erectile dysfunction Family history of Crohn's disease GERD (gastroesophageal reflux disease) Nausea & vomiting Obesity Rosacea Seasonal allergies Normal [facility] Physician Referralon 022 Physician Referral [id number] CC#[id number]:127 Normal [facility] Vital Signs Date Time Vital Sign Value Performing Clinician Facility 05-02-2024 11:39-0500 Body height 172.72 cm [facility] 05-02-2024 11:39-0500 Body mass index (BMI) [Ratio] 35 kg/m2 [facility] 05-02-2024 11:39-0500 Body temperature 99.5 [degF] [facility] 05-02-2024 11:39-0500 Body weight 104.63 kg [facility] 05-02-2024 11:39-0500 Diastolic blood pressure 81 mm[Hg] [facility] 05-02-2024 11:39-0500 Heart rate 96 /min [facility] 05-02-2024 11:39-0500 Respiratory rate 17 /min [facility] 05-02-2024 11:39-0500 SaO2% (BldA) [Mass fraction] 95 % [facility] 05-02-2024 11:39-0500 Systolic blood pressure 114 mm[Hg] [facility] 08-19-2022 17:25-0400 Body height 175.26 cm Astrid Avila Other [employer] Other 08-19-2022 17:25-0400 Body mass index (BMI) [Ratio] 35.88 kg/m2 Astrid Avila Other [employer] Other 08-19-2022 17:25-0400 Body temperature 98.2 [degF] Astrid Rosenthalmond Other [employer] Other 08-19-2022 17:25-0400 Body weight 110.22 kg Astrid Avila Other [employer] Other 08-19-2022 17:25-0400 Respiratory rate 19 /min Astrid Avila Other [employer] Other 08-19-2022 17:25-0400 SaO2% (BldA) [Mass fraction] 98 % Astrdi Avila Other [employer] Other Encounters Encounter Date Encounter Type Care Provider Facility Start: 05-02-2024 End: 05-02-2024 ambulatory [facility] Work Phone: Start: 05-02-2024 End: 05-02-2024 Patient encounter procedure [facility] Work Phone: Start: 08-19-2022 End: 08-19-2022 ambulatory Astrid Margarita Facility:[facility] Start: 08-19-2022 End: 08-19-2022 Patient encounter procedure [facility] Astrid Avila Work Phone: [facility] Work Phone: Start: 08-19-2022 End: 08-19-2022 ambulatory [facility]-C Astrid Avila Work Phone: [facility] Work Phone: Start: 08-19-2022 Office outpatient ne w 20 minutes Astrid Avila [facility] Start: 11-07-2021 End: 11-07-[address] RENÉE HO Facility:[facility] Start: 06-18-2021 Encounter for preprocedural laboratory examination DR KYLE CAREY [facility] Start: 06-18-2021 End: 06-18-[address] KP PEÑA Facility:[facility] Start: 06-14-2021 End: 06-15-[address] KP PEÑA Facility:[facility] Start: 06-14-2021 End: 06-15-2021 Encounter for preprocedural laboratory examination DR KP PEÑA Facility:[facility] Start: 06-10-2021 Image Encounter Rafa Keen Work Phone: zz DO NOT USE - [facility] Only Procedures Date Procedure Procedure Detail Performing Clinician Start: 05-02-2024 Quick Strep (POC) Start: 08-19-2022 Plain X-ray of right hip BASEBALL PITCHER-C Astrid Avila Work Phone: Immunizations Immunization Date Immunization Notes Care Provider Fa cility 06-05-2020 Pfizer-BioNTech COVI D-19 Vacc 30 MCG/0.3ML Intramuscular Suspension Rafa Keen Work Phone: zz DO NOT USE - [facility] Only 05-15-2020 Pfizer-BioNTech COVI D-19 Vacc 30 MCG/0.3ML Intramuscular Suspension Rafa Keen Work Phone: zz DO NOT USE - [facility] Only 04-24-2016 tetanus toxoid, redu pepe diphtheria toxoid, and acellular pertussis vaccine, adsorbed Rafa Keen Work Phone: [facility] 11-06-1999 hepatitis B vaccine, pediatric or pediatric/adolescent dosage Rafa Keen Work Phone: zz DO NOT USE - [facility] Only 11-06-1999 measles, mumps and rubella virus vaccine Rafa Keen Work Phone: zz DO NOT USE - [facility] Only 11-04-1992 diphtheria, tetanus toxoids and pertussis vaccine Rafa Keen Work Phone: zz DO NOT USE - [facility] Only 11-04-1992 trivalent poliovirus vaccine, live, oral Rafa Keen Work Phone: zz DO NOT USE - [facility] Only 12-05-1990 diphtheria, tetanus toxoids and pertussis vaccine Rafa Keen Work Phone: zz DO NOT USE - [facility] Only 12-05-1990 haemophilus influenz ae type b vaccine, conjugate unspecified formulation Rafa Keen Work Phone: zz DO NOT USE - [facility] Only 12-05-1990 trivalent poliovirus vaccine, live, oral Rafa Keen Work Phone: zz DO NOT USE - [facility] Only 09-03-1989 diphtheria, tetanus toxoids and pertussis vaccine Rafa Keen Work Phone: zz DO NOT USE - [facility] Only 09-03-1989 measles, mumps and rubella virus vaccine Rafa Keen Work Phone: zz DO NOT USE - [facility] Only 09-03-1989 trivalent poliovirus vaccine, live, oral Rafa Keen Work Phone: zz DO NOT USE - [facility] Only 04-29-1987 diphtheria, tetanus toxoids and pertussis vaccine Rafa Keen Work Phone: zz DO NOT USE - [facility] Only 04-29-1987 trivalent poliovirus vaccine, live, oral Craig B Osmani Work Phone: zz DO NOT USE - [facility] Only Payers Date Payer Category Payer Self-pay 2015 [facility] [id number] 1985 Unknown [id number] 1985 Unknown [id number] 1985 Unknown [id number] 1959 Unknown [id number] Unknown [employer] Unknown [id number] Unknown [employer] [id number] Social History Date Type Detail Facility Tobacco smoking status NHIS Unknown if ever smoked [facility] Work Phone: Start: 1985 Sex Assigned At Male F [facility] Sex Assigned At Sex Assigned At Bir th [facility] [employer] Other Start: 05-02-2024 Tobacco smoking status NHIS Never smoked tobacco (finding) [facility] Start: 05-02-2024 Sex Male (finding) [facility] Evaluation note 08-19-2022 Note Date & Type Note Facility 08-19-2022 Evaluation note Encounter Date Diagnosis Assessment Notes Aug, Right hip pain (ICD-10 - M25.551) Hip pain home care material was printed Aug, Strain of right hip, initial encounter (ICD-10 - S76.011A) Drink plenty fluids, get plenty of rest. Continue home medications as prescribed. Take the prednisone as prescribed until gone starting tomorrow. Apply ice to your hip 2-3 times a day for comfort. Follow-up with your family physician if no improvement in 3 to 5 days [facility] [employer] Other Clinical Note 06-18-2021 Note Date & Type Note Facility 06-18-2021 Note OPERATIVE NOTE PREOPERATIVE DIAGNOSIS: Gastroesophageal reflux disease, intermittent loose stools. POSTOPERATIVE DIAGNOSIS: Antral gastritis, duodenitis, redundant colon. PROCEDURE: EGD with duodenal and antral biopsies, as well as colonoscopy to cecum. SURGEON: Kyle Carey M.D. ANESTHESIA: Monitored anesthesia care. ESTIMATED BLOOD LOSS: Less than 1 mL. INDICATIONS AND CONSENT: Patient is a 35-year-old male with a history of intermittent loose stools as well as worsening gastroesophageal reflux disease, unable to tolerate protonix. Indications, risks, benefits, alternatives of proceeding with EGD and colonoscopy for further evaluation were explained extensively to the patient, including the risks of bleeding, aspiration, esophageal, gastric, colonic perforation or anesthetic complications. All of his questions were answered. Informed consent was obtained. PROCEDURE: Patient was brought to the operating room, placed in the left lateral decubitus position. Monitored anesthesia care was provided. Bite block was placed in the patient's mouth. Scope was entered into the oropharynx. Under direct visualization, it was advanced into the esophagus, past the cricopharyngeus, down to the stomach. The stomach was insufflated with air. The pylorus was traversed down to the descending portion of the duodenum. There was evidence of mild duodenitis as well as some antral gastritis with some small superficial ulcerations. No bleeding or old blood. The scope was retroflexed in the stomach. There was noted to be no significant hiatal hernia. Pediatric biceps forceps were used to obtain duodenal biopsy as well as antral biopsies x2. The GE junction was noted at 38 cm. There were no Anna's changes or significant esophagitis. The remainder of the esophagus was unremarkable. The scope was then withdrawn. Patient was then positioned for colonoscopy. Rectal exam was performed, which showed no mass or blood. The scope was then inserted up the anal canal. Under direct visualization, it was advanced. With the aid of abdominal compression, it was advanced to the cecum. The cecal markings were clearly identified. The terminal ileum could not be intubated. There was a large amount of bile throughout the colon. There was a good prep. Upon withdrawal of the scope, mucosal surfaces were carefully examined. There were no mass lesions or polyps. No inflammatory changes or ulcerations. No significant diverticulosis. There was some redundancy of the colon. Scope was retroflexed in the anal canal. There were noted to be some prominent rectal veins. No significant hemorrhoidal disease. The scope was then withdrawn. The patient tolerated procedure well, was sent to recovery room in good condition. CC: Kp Peña M.D. [facility] Signed and Approved by: DR KYLE CAREY . 06/20/2021 14:04:00 [facility] Clinical Note 06-06-2021 Note Date & Type Note Facility 06-06-2021 Note Chief Complaint consultation for diarrhea HPI Staff 35 year old male presents on consultation from Dr. Peña for chronic diarrhea and vomiting after eating. Reports multiple year history of stated symptoms. States he can have up to 20 liquid stools per day. Denies rectal pain or bleeding. Reports vomiting after eating bread and certain powered flavoring. Denies other food triggers. States he experiences gas and bloating as well. Denies abdominal pain but reports epigastric fullness/pressure. Took two doses of Pantoprazole but stopped as he felt this made his thyroid swell. Never had any imaging or testing. History of Present Illness 35 yo male with h/o asthma and GERD, referred for chronic intermittent loose stools; no blood or melena,worse at times with certain foods such as bread, does not occur shortly after eating; frequent GERD, no longer taking PPI; no dysphagia; gets SOB when lying down; no regurgitation; no wt loss; intermittent N/V with certain food triggers, no hematemesis; no previous endoscopy or abdominal operations; no asa or NSAID use; no fmhx of GI malignancy; patient's sister diagnosed with Crohn's disease. Review of Systems PHQ Score Initial Depression Screen Score: 0 ROS - Provider Constitutional: no fever, no sweats, no weight loss. Eyes: no glasses, no blurred vision, no visual loss. ENMT: no dentures, no hoarseness, no swallowing difficulties, no hearing loss, no ear infection(s), no nose bleeds. Cardiovascular: normal blood pressure, no chest pain, regular heartbeat, no heart murmur. Respiratory: no shortness of breath, no cough, no asthma, no wheezing. Gastrointestinal: yes nausea, yes vomiting, yes diarrhea, no constipation, no blood in stool, no change in bowel habits, no abdominal pain, no hepatitis. Genitourinary: no kidney stones, no urine infection, no dysuria. Musculoskeletal: no pain, no weakness. Skin: no changing moles, no rash, no skin lumps. Neurologic: no seizures, no epilepsy, no headache. Psychiatric: no emotional or psychiatric problem. Heme/Lymph: no bleeding problems, no anemia, no blood clots, no transfusions. Allergy/Immunologic: no swollen lymph nodes/glands, no IV drug abuse. Other: Additional ROS info: Except as noted in the above Review of Systems and in the History of Present Illness, all other systems have been reviewed and are negative or noncontributory. Physical Exam Vitals & Measurements HR: 80(Peripheral) RR: 16 BP: 122/86 HT: 175.3 cm HT: 175.26 cm WT: 107.9 kg WT: 107.9 kg BMI: 35.13 HEENT: normal conjunctiva, sclera clear, no scleral icterus, EOM intact, PERRLA, oral mucosa moist without lesions. Neck: trachea midline, no mass, symmetric, no thyromegaly or nodules, no adenopathy Respiratory: lungs CTA, respirations non labored. Cardiovascular: regular rate and rhythm, no murmur, no pedal edema or varicosities. Gastrointestinal:obese, soft, non distended, no tenderness, no masses, no palpable hernias, diastasis recti yes, no hepatosplenomegaly; normal bs Lymphatic: no cervical adenopathy, no axillary adenopathy, no inguinal adenopathy. Musculoskeletal: normal gait, digits and nails without infection, nodes, cyanosis, clubbing. Skin: no rashes, no lesions, no ulcers, no subcutaneous nodules, induration. Psychiatric/Neuro: oriented to time, place, person, judgement normal, affect appropriate for age, insight intact, no focal deficits. Tests:, review of old records completed, Discussed surgical options, risks, and possible complications with patient. Assessment/Plan 1. Chronic diarrhea (K52.9: Noninfective gastroenteritis and colitis, unspecified) plan EGD and colonoscopy under anesthesia for further evaluation, informed consent obtained. 2. GERD (gastroesophageal reflux disease) (K21.9: Gastro-esophageal reflux disease without esophagitis) see # 1 3. Nausea & vomiting (R11.2: Nausea with vomiting, unspecified) see #1 4. Family history of Crohn's disease (Z83.79: Family history of other diseases of the digestive system) see # 1 Follow-up No qualifying data available Problem List/Past Medical History Ongoing Asthma BMI 35.0-35.9,adult Chronic diarrhea Depression Diabetes Erectile dysfunction Family history of Crohn's disease GERD (gastroesophageal reflux disease) Nausea & vomiting Obesity Rosacea Seasonal allergies Historical No qualifying data Procedure/Surgical History Lumbar discectomy (05/02/2018), Closed fracture of clavicle, Extraction of wisdom tooth. Medications Questran Light 4 g/5 g Oral Packet, 4 gm, Oral, BID Remeron 30 mg Tab, 30 mg= 1 tab(s), Oral, Once a day (at bedtime) tiZANidine 4 mg Tab, 8 mg= 2 tab(s), Oral, Bedtime Ventolin HFA 90 mcg/inh Aerosol, 2 puff(s), Inhalation, QID, PRN Allergies No Known Allergies No Known Medication Allergies Social History Alcohol - Denies Alcohol Use, 06/06/2021 Substance Abuse - Denies Substance Abuse, 06/06/2021 Tobacco Never (less than 100 in (more content not included)... [facility] Comment on above: Result Comment: Elec tronically Signed By: MAGNOLIA JENSEN, Kyle Carroll.campos\Date and Time Signed: 06/06/21 14:01 EDT Evaluation note Note Date & Type Note Facility Evaluation note No assessment information availa [facility] Work Phone: Evaluation note Note Date & Type Note Facility Evaluation note Diagnosis Onset Date Resolution Influenza A noneactive April 11:34am Sore throat noneactive April 11:34am [facility] Work Phone: History general Narrative - Reported Note Date & Type Note Facility History general Narrative - Reported Type Medical History Asthma Medical History seasonal allergies Medical History rosacea Medical History Anxiety Surgical History Clavicle repair 2004 Surgical History Lumbar Discectomy Hospitalization History Bronchitis 2001 Hospitalization History See above 2004 [employer] Other Summary Purpose Family History Relationship Condition Age at Onset Recorded Date/T radha father Hypertension Unknown Advance Directives Advance Directive Response Recorded Date/ Time Advance Directives No August 26 8:12am Chief Complaint and Reason for Visit Chief Complaint Admit Date Sore throat May 02, 2024 11:34am Reason for Visit Admit Date Influenza A May 02, 2024 11:34am Sore throat May 02, 2024 11:34am Additional Source Comments (unrecognized sect ion and content) No Status Records FoundNo Status Records FoundNo Status Records Found INFORMATION SOURCE (unrecogn ized section and content) DATE CREATED AUTHOR 08/01/2021 [facility] DATE CREATED AUTHOR AUTHOR'S ORGANIZ ATION 11/10/2021 [facility] DATE CREATED AUTHOR AUTHOR'S ORGANIZ ATION 09/02/2022 [facility] Care Teams (unrecognized sec tion and content) Team Status: Inactive Member Role Status Dates KARSON Tran Attending Provider Active Team Status: Active Member Role Status Dates PHYSICIAN NO FAMILY Primary Care Provider Active Team Status: Inactive Member Role Status Dates PHYSICIAN NO FAMILY Primary Care Provider Active Start: May 02, 2024 End: May 02, 2024 Nadege Gonzalez APRN Attending Provider Active Start: May 02, 2024 End: May 02, 2024 Goals (unrecognized section and content) Goals may be documented in a n alternate sectionNo InformationGoals may be documented in an alternate section REASON FOR VISIT (unrecogniz ed section and content) RIGHT HIP PAIN GOING DOWN LE G, NO ACCIDENT FOR RECORDS PERTAINING TO PATIENTS WHO ARE OR HAVE BEEN ENROLLED IN A CHEMICAL DEPENDENCY/SUBSTANCEABUSE PROGRAM, SOME INFORMATION MAY BE OMITTED. This clinical summary was aggregated from multiple sources. Caution should be exercised in using it in the provision of clinical care. This summary normalizes information from multiple sources, and as a consequence, information in this document may materially change the coding, format and clinical context of patient data. In addition, data may be omitted in some cases. CLINICAL DECISIONS SHOULD BE BASED ON THE PRIMARY CLINICAL RECORDS. [employer] provides no warranty or guarantee of the accuracy or completeness of information in this document.
[2024-11-17 09:50] LABS: Hematocrit 44.1 % (42.0-54.0); Hemoglobin 14.8 g/dL (14.0-18.0); Immature Granulocytes Abs Auto 0.04 10^3/uL (0.00-0.03); Immature Granulocytes Pct Auto 0.4 % (0.0-0.5); Lymphocytes Absolute Auto 2.0 10^3/uL (1.2-3.8); Mean Corpuscular HGB Conc 33.6 g/dL (29.9-35.2); Mean Corpuscular Hemoglobin 28.2 pg (25.9-34.0); Mean Corpuscular Volume 84.2 fL (80.0-94.0); Platelet Count 351 10^3/uL (150-450); Red Blood Count 5.24 10^6/uL (4.70-6.10); White Blood Count 11.2 10^3/uL (4.0-11.0)
[2024-11-17 10:32] LABS: Alanine Aminotransferase 48 U/L (16-63); Albumin Globulin Ratio 0.9; Albumin Level 3.4 g/dL (3.4-5.0); Alkaline Phosphatase 86 U/L (46-116); Anion Gap 9.5; Aspartate Amino Transferase 31 U/L (15-37); Blood Urea Nitrogen 8.0 mg/dL (7.0-18.0); Calcium 8.7 mg/dL (8.5-10.1); Carbon Dioxide 30.8 mmol/L (21.0-32.0); Chloride 106 mmol/L (98-107); Cholesterol 175 mg/dL (<=200); Estimated GFR (African America >60 (>=60 mL/min/1.73m^2); Estimated GFR (Non-African Ame >60 (>=60 mL/min/1.73m^2); Free T3 3.21 pg/mL (2.18-3.98); Globulin 4.0 g/dL; Glucose 100 mg/dL (74-106); HDL Cholesterol 35 mg/dL (40-60); Potassium 4.3 mmol/L (3.5-5.1); Sodium 142 mmol/L (136-145); Thyroid Stimulating Hormone 1.207 uIU/mL (0.358-3.740); Total Protein 7.4 g/dL (6.4-8.2); Triglycerides 320 mg/dL (<=150); VLDL CHOLESTEROL 64.0 mg/dL
== END 2024-11-17 09:06 | disposition home or self-care (01) ==
PROVIDERS: PCP Family Medicine; Visit Provider Family Medicine
DX: Z00.00 Encounter for general adult medical examination without abnormal findings (principal)
CPT/HCPCS: 36415; 80053; 80061; 83036; 83525; 84436; 84443; 84481; 85025

== ENCOUNTER 2024-11-26 16:58 | Emergency (ER) | payer BC, SELFPAY ==
--- OUTSIDE RECORDS SUMMARY | 2024-11-26 17:02 | XMS_ITS | CCD ---
Author Organization [facility] Care Team Providers Care Wildlife Removal Specialist Name Role Phone Osmani Craig B Unavailable [...] GOODRICH Primary Care Unavailable [place], DR RENÉE Yougn Attending Unavailable GENEVA GALLAGHER Consulting Unavailable KARSON Avila Attending Provider Astrid Avila Unavailable Astrid Avila Attending Unavailable Astrid Avila Admitting Unavailable NO FAMILY, PHYSICIAN Primary Care Unavailable Allergies Allergy Classification Reported Allergen(s) Allergy Type Date of Onset Reaction(s) Facility (2 sources) pantoprazole Drug Allergy 0 neck swelling [facility] Repository (1 source) pantoprazole Drug Allergy neck swelling [employer] Other (1 source) Gluten Allergy to substance 5 Abdominal Pain [facility] Comment on above: celiac Medications Current Medications Medication Drug Class(es) Dates Sig (Normalized) Sig (Original) [id number] 200 actuat albuterol 0.09 mg/actuat metered dose [...] extended release oral tablet (1 source) Uncompetitive U-bafzir-S-aspartat e Receptor Antagonist, Sigma-1 Agonist Start: 05-02-2024 [...] 11-07-2021 Episodic Other aftercare (1 source) Other longshore equipment operator (current) drug therapy; Translations: [OTH USP CURRENT DRUG THERAPY] Onset: 11-10-2021 Episodic Other [...] Nadege Gonzalez on 05-02-2024 Quick Strep (POC) [facility] XR hip RT min 2V(w/wo pelvis )*on 08-19-2022 XR hip RT min 2V(w/wo pelvis)* [facility] [address] [address] XRay Report Signed Patient: Betina Troy JR MR#: [id number] : 1985 Acct:[id number] Age/Sex: 36 / M ADM Date: 08/19/22 Loc: XDUCLY Room: Type: [facility] Attending Dr: Astrid TY Copies to: KARSON [...] Renée Simpson M.D.08/19/2022 6:11 PM Dictation Location: [place] [address] Transcribed By: [facility] 08/19/221810 Dictated By: Renée Simpson II, MD 08/19/221810 Signed By: 08/19/221810 Normal [facility] XR hip RT min 2V(w/wo pelvis)* [facility] [employer] Other XR hip RT min 2V(w/wo pelvis)* [facility] [employer] Other XR hip RT min 2V(w/wo pelvis)* [facility] [employer] Other XR hip RT min 2V(w/wo pelvis)* [place] [address] [employer] [employer] Other XR hip RT min 2V(w/wo pelvis)* XRay Report [employer] Other XR hip RT min 2V(w/wo pelvis)* Signed [employer] Other XR hip RT min 2V(w/wo pelvis)* Patient: Betina Troy MR#: [id number] [employer] Other XR hip RT min 2V(w/wo pelvis)* : 1985 Acct:[id number] [employer] Other XR hip RT min 2V(w/wo pelvis)* Age/Sex: 36 / M ADM Date: 08/19/22 [employer] Other XR hip RT min 2V(w/wo pelvis)* Loc: XDUCLY Room: Type: [facility] [employer] Other XR hip RT min 2V(w/wo pelvis)* Attending Dr: Astrid TY [employer] Other XR hip RT min 2V(w/wo pelvis)* Copies to: KARSON Patton [employer] Other XR hip RT min 2V(w/wo pelvis)* Ordering Provider: KARSON Patton [employer] Other XR hip RT min 2V(w/wo pelvis)* Date of Service: 08/19/22 [employer] Other XR hip RT min 2V(w/wo pelvis)* XR/XR hip RT min 2V(w/wo pelvis)*: RIGHT HIP PAIN [employer] Other XR hip RT min 2V(w/wo pelvis)* XR hip RT min 2V(w/wo pelvis)* 08/19/2022 6:09 PM [employer] Other XR hip RT min 2V(w/wo pelvis)* SIGNS AND SYMPTOMS: Right hip pain anteriorly and laterally [employer] Other XR hip RT min 2V(w/wo pelvis)* PROTOCOL: Frontal radiograph the pelvis with frontal and frog-leg views of the right hip [employer] Other XR hip RT min 2V(w/wo pelvis)* COMPARISON: None [employer] Other XR hip RT min 2V(w/wo pelvis)* FINDINGS: [employer] Other XR hip RT min 2V(w/wo pelvis)* The bony ring of the pelvis is intact. The weightbearing joint spaces are grossly preserved. There [employer] Other XR hip RT min 2V(w/wo pelvis)* is no fracture or dislocation. [employer] Other XR hip RT min 2V(w/wo pelvis)* XR/XR hip RT min 2V(w/wo pelvis)* [employer] Other XR hip RT min 2V(w/wo pelvis)* IMPRESSION: [employer] Other XR hip RT min 2V(w/wo pelvis)* No acute bony injury or significant degenerative change. [employer] Other XR hip RT min 2V(w/wo pelvis)* Impression dictated by: Renée Simpson M.D.08/19/2022 6:11 PM [employer] Other XR hip RT min 2V(w/wo pelvis)* Dictation Location: [place] [address] [employer] Other XR hip RT min 2V(w/wo pelvis)* Transcribed By: NEHAL 08/19/221810 [employer] Other XR hip RT min 2V(w/wo pelvis)* Dictated By: Renée Simpson II, MD 08/19/221810 [employer] Other XR hip RT min 2V(w/wo pelvis)* Signed By: [employer] Other XR hip RT min 2V(w/wo pelvis)* 08/19/22 1811 [employer] Other CBC AUTO DIFFon 11-07-2021 BASO # 0.1 103/ul Normal 0.0-0.1 [facility] Comment on above: Performed By: #### C BC #### [facility] [address] [place] [address] Dr. Becky Tian Basophils/100 WBC (Bld) 0.3 % Normal 0.2-2.0 [facility] Comment on above: Performed By: #### C BC #### [facility] [address] [place] [address] Dr. Becky Tian EO # 0.0 103/ul Normal 0.0-0.7 [facility] Comment on above: Performed By: #### C BC #### [facility] [address] [place] [address] Dr. Becky Tian Eosinophils/100 WBC (Bld) 0.1 % Critically low 0.9-7.0 [facility] Comment on above: Performed By: #### C BC #### [facility] [address] [place] [address] Dr. Becky Tian Erythrocyte distribution width (RBC) [Ratio] 12.6 % Normal 11.0-15.0 [facility] Comment on above: Performed By: #### C BC #### [facility] [address] [place] [address] Dr. Becky Tian Hematocrit (Bld) [Volume fraction] 44.6 % Normal 42.0-54.0 [facility] Comment on above: Performed By: #### C BC #### [facility] [address] [place] [address] Dr. Becky Tian Hemoglobin (Bld) [Mass/Vol] 14.8 g/dL Normal 14.0-18.0 [facility] Comment on above: Performed By: #### C BC #### [facility] [address] [place] [address] Dr. Becky Tian IG # 0.24 10e3/ul Critically high 0.00-0.03 [facility] Comment on above: Performed By: #### C BC #### [facility] [address] [place] [address] Dr. Becky Tian IG % 1.5 % Critically high 0.0-0.5 [facility] Comment on above: Performed By: #### C BC #### [facility] [address] [place] [address] Dr. Becky Tian LYMPH # 3.1 103/ul Normal 1.2-3.8 [facility] Comment on above: Performed By: #### C BC #### [facility] [address] [place] [address] Dr. Becky Tian Lymphocytes/100 WBC (Bld) 19.4 % Critically low 20.5-60.0 [facility] Comment on above: Performed By: #### C BC #### [facility] [address] [place] [address] Dr. Becky Tian MANUAL DIFF REQ NO Normal [facility] Comment on above: Performed By: #### C BC #### [facility] [address] [place] [address] Dr. Becky Tian MCH (RBC) [Entitic mass] 27.6 pg Normal 25.9-34.0 [facility] Comment on above: Performed By: #### C BC #### [facility] [address] [place] [address] Dr. Becky Tian MCHC (RBC) [Mass/Vol] 33.2 g/dL Normal 29.9-35.2 [facility] Comment on above: Performed By: #### C BC #### [facility] [address] [place] [address] Dr. Becky Tian MCV (RBC) [Entitic vol] 83.2 fL Normal 80.0-94.0 [facility] Comment on above: Performed By: #### C BC #### [facility] [address] [place] [address] Dr. Becky Tian MONO # 1.4 103/ul Critically high 0.3-0.8 [facility] Comment on above: Performed By: #### C BC #### [facility] [address] [place] [address] [address] Becky Tian Monocytes/100 WBC (Bld) 8.8 % Normal 1.7-12.0 [facility] Comment on above: Performed By: #### C BC #### [facility] [address] [place] [address] [address] Becky Tian NEUT # 11.2 103/ul Critically high 1.4-6.5 [facility] Comment on above: Performed By: #### C BC #### [facility] [address] [place] [address] [address] Becky Tian Neutrophils/100 WBC (Bld) 69.9 % Normal 43.0-75.0 [facility] Comment on above: Performed By: #### C BC #### [facility] [address] [place] [address] Dr. Becky Tian Platelet mean volume (Bld) [Entitic vol] 9.0 fL Critically low 9.5-13.5 [facility] Comment on above: Performed By: #### C BC #### [facility] [address] [place] [address] Dr. Becky Tian PLT 483 103/ul Critically high 150-450 [facility] Comment on above: Performed By: #### C BC #### [facility] [address] [place] [address] Dr. Becky Tian RBC 5.36 106/ul Normal 4.70-6.10 [facility] Comment on above: Performed By: #### C BC #### [facility] [address] [place] [address] Dr. Becky Tian WBC 16.0 103/ul Critically high 4.0-11.0 The [facility] Comment on above: Performed By: #### C BC #### [facility] [address] [place] [address] Dr. Becky Tian D-DIMERon 11-07-2021 D-DIMER <0.19 Normal <=0.59 [facility] Comment on above: Performed By: #### D DIM #### [facility] [address] [place] [address] Dr. Becky Tian D-DIMER COMMENTS SEE BELOW Normal [facility] Comment on above: Result Comment: Incr eases [...] hospitalization. Performed By: #### D DIM #### [facility] [address] [place] [address] Dr. Becky Tian PROF 14(COMP METB)on 022 Albumin [Mass/Vol] 3.7 g/dL Normal 3.4-5.0 [facility] Comment on above: Performed By: #### H HALEY, CMP #### [facility] [address] [place] [address] Dr. Becky Tian Albumin/Globulin [Mass ratio] 0.9 {ratio} Normal [facility] Comment on above: Performed By: #### H HALEY, CMP #### [facility] [address] [place] [address] Dr. Becky Tian ALP [Catalytic activity/Vol] 84 U/L Normal 46-116 [facility] Comment on above: Performed By: #### H HALEY, CMP #### [facility] [address] [place] [address] Dr. Becky Tian ALT [Catalytic activity/Vol] 72 U/L Critically high 16-63 [facility] Comment on above: Performed By: #### H RODNEYPN, CMP #### [facility] [address] [place] [address] Dr. Becky Tian Anion gap [Moles/Vol] 13.5 mmol/L Normal [facility] Comment on above: Performed By: #### H RODNEYPN, CMP #### [facility] [address] [place] [address] [address] Becky Tian AST [Catalytic activity/Vol] 35 U/L Normal 15-37 [facility] Comment on above: Performed By: #### H STROPN, CMP #### [facility] [address] [place] [address] Dr. Becky Tian Bilirubin [Mass/Vol] 0.4 mg/dL Normal 0.2-1.0 [facility] Comment on above: Performed By: #### H STROPN, CMP #### [facility] [address] [place] [address] Dr. Becky Tian Calcium [Mass/Vol] 8.8 mg/dL Normal 8.5-10.1 [facility] Comment on above: Performed By: #### H STROPN, CMP #### [facility] [address] [place] [address] Dr. Becky Tian Chloride [Moles/Vol] 101 mmol/L Normal 98-107 [facility] Comment on above: Performed By: #### H STROPN, CMP #### [facility] [address] [place] [address] Dr. Becky Tian CO2 [Moles/Vol] 28.1 mmol/L Normal 21.0-32.0 [facility] Comment on above: Performed By: #### H STROPN, CMP #### [facility] [address] [place] [address] Dr. Becky Tian Creatinine [Mass/Vol] 0.91 mg/dL Normal 0.70-1.30 [facility] Comment on above: Performed By: #### H STROPN, CMP #### [facility] [address] [place] [address] Dr. Becky Tian EGFR-AF HUNGARIAN >60 Normal >=60 The [facility] Comment on above: Performed By: #### H STROPN, CMP #### [facility] [address] [place] [address] Dr. Becky Tian EGFR-NON AF HUNGARIAN >60 Normal >=60 [facility] Comment on above: Performed By: #### H STROPN, CMP #### [facility] [address] [address] [address] Becky Tian Globulin (S) [Mass/Vol] 3.9 g/dL Normal [facility] Comment on above: Performed By: #### H RODNEYPN, CMP #### [facility] [address] [address] [address] Becky Tian Glucose [Mass/Vol] 137 mg/dL Critically high 74-106 [facility] Comment on above: Performed By: #### H STROPN, CMP #### [facility] [address] [place] [address] Dr. Becky Tian Potassium [Moles/Vol] 3.6 mmol/L Normal 3.5-5.1 [facility] Comment on above: Performed By: #### H RODNEYPN, CMP #### [facility] [address] [place] [address] Dr. Becky Tian Protein [Mass/Vol] 7.6 g/dL Normal 6.4-8.2 [facility] Comment on above: Performed By: #### H STROPN, CMP #### [facility] [address] [place] [address] Dr. Becky Tian Sodium [Moles/Vol] 139 mmol/L Normal 136-145 [facility] Comment on above: Performed By: #### H STROPN, CMP #### [facility] [address] [address] [address] Becky Tian Urea nitrogen [Mass/Vol] 26.0 mg/dL Critically high 7.0-18.0 [facility] Comment on above: Performed By: #### H STROPN, CMP #### [facility] [address] [place] [address] Dr. Becky Tian Urea nitrogen/Creatinine [Mass ratio] 28.6 mg/mg Normal [facility] Comment on above: Performed By: #### H RODNEYPN, CMP #### [facility] [address] [place] [address] Dr. Becky Tian TROPONIN, HIGH SENSITIVITYon 11-07-2021 HSTROP 4.0 pg/mL Normal 4.0-76.1 [facility] Comment on above: Result Comment: CUT- OFF POINTS HAVE BEEN ESTABLISHED BASED ON THE FOURTH UNIVERSAL DEFINITIONS OF MYOCARDIAL INFARCTION. THE UPPER REFERENCE LIMIT (URL) OF TROPONIN, DEFINED THE 99TH PERCENTILE OF cTnI DISTRIBUTION IN A REFERENCE POPULATION, HAS BEEN CONFIRMED THE DECISION THRESHOLD FOR [place] DIAGNOSIS. Performed By: #### H STROPN, CMP #### [facility] [address] [place] [address] [address] Becky Tian XR CHEST 1 Von [...] by: GENEVA GALLAGHER Date: 2021-11-07 21:04 Normal [facility] Pathology Noteon 06-20-2021 Pathology Note [id number] 198#1.00CD:127 Normal [facility] Outside Colonoscopyon 2021 Outside Colonoscopy [id number] 5#1.00CD:127 Normal [facility] POINT OF CARE GLUCOSEon Glucose [Mass/Vol] 93 mg/dL Normal 74-106 [facility] Comment on above: Performed By: #### P OCGLUC #### [facility] [address] [place] [address] Dr. Becky Tian Lab Reportson 06-16-2021 Lab Reports [id number] 3#1.00CD:127 Normal [facility] Covid-19 PCR (CVDTBH)on SARS-CoV-2 (COVID-19) RNA CE+probe Ql (Unsp spec) Not detected Normal NOT DETECTED [facility] Comment on above: Result Comment: This test is not yet approved or cleared by the [place] FDA. When there are no FDA-approved or cleared tests available, and other criteria are met, FDA can make tests available under an emergency access mechanism called an Emergency Use Authorization (EUA). The EUA for this test is supported by the [place] of Health and Human Service's (HHS's) declaration [...] consistent with SARS-CoV-2. Performed By: #### C [facility] #### [facility] [address] [place] [address] Dr. Becky Tian Formson 06-09-2021 Forms [id number]#1.00CD:127 Normal [facility] Ambulatory Visit Summaryon 0 06-06-2021 Ambulatory Visit [...] & vomiting Obesity Rosacea Seasonal allergies Normal [facility] Physician Referralon 022 Physician Referral [id number] CC#1.00CD:127 Normal [facility] Vital Signs Date Time Vital Sign Value Performing Clinician Facility 05-02-2024 11:39-0500 Body height 172.72 cm [facility] 05-02-2024 11:39-0500 Body mass index (BMI) [Ratio] 35 kg/m2 [facility] 05-02-2024 11:39-0500 Body temperature 99.5 [degF] [facility] 05-02-2024 11:39-0500 Body weight 104.63 kg [facility] 05-02-2024 11:39-0500 Diastolic blood pressure 81 mm[Hg] [facility] 05-02-2024 11:39-0500 Heart rate 96 /min [facility] 05-02-2024 11:39-0500 Respiratory rate 17 /min [facility] 05-02-2024 11:39-0500 SaO2% (BldA) [Mass fraction] 95 % [facility] 05-02-2024 11:39-0500 Systolic blood pressure 114 mm[Hg] [facility] 08-19-2022 17:25-0400 Body height 175.26 cm Astrid Avila Other [employer] Other 08-19-2022 17:25-0400 Body mass index (BMI) [Ratio] 35.88 kg/m2 Astrid Avila Other [employer] Other 08-19-2022 17:25-0400 Body temperature 98.2 [degF] Astrid Rosenthalmond Other [employer] Other 08-19-2022 17:25-0400 Body weight 110.22 kg Astrid Avila Other [employer] Other 08-19-2022 17:25-0400 Respiratory rate 19 /min Astrid Avila Other [employer] Other 08-19-2022 17:25-0400 SaO2% (BldA) [Mass fraction] 98 % Astrid Avila Other [employer] Other Encounters Encounter Date Encounter Type Care Provider Facility Start: 05-02-2024 End: 05-02-2024 ambulatory [facility] Work Phone: Start: 05-02-2024 End: 05-02-2024 Patient encounter procedure [facility] Work Phone: Start: 08-19-2022 End: 08-19-2022 ambulatory Astrid Margarita Facility:[facility] Start: 08-19-2022 End: 08-19-2022 Patient encounter procedure [employer] Astrid Avila Work Phone: [facility] Work Phone: Start: 08-19-2022 End: 08-19-2022 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[employer] Astrid Avila Work Phone: [facility] Work Phone: Start: 08-19-2022 Office outpatient ne w 20 minutes Astrid Avila [facility] Start: 11-07-2021 End: 11-07-[address] RENÉE HO Facility:[facility] Start: 06-18-2021 Encounter for preprocedural laboratory examination DR KYLE CRAEY [facility] Start: 06-18-2021 End: 06-18-[address] KP [...] Start: 08-19-2022 Plain X-ray of right hip [employer]ONEWORK SUPERVISOR-C Astrid Avila Work Phone: Immunizations Immunization Date [...] pertussis vaccine, adsorbed Rafa Keen Work Phone: [facility] 11-06-1999 hepatitis B vaccine, pediatric or pediatric/adolescent [...] Payers Date Payer Category Payer Self-pay 2015 [facility] [id number] 1985 Unknown [id number] 1985 Unknown [id number] 1985 Unknown [id number] 93 1959 Unknown [id number] Unknown EMPLOYEE [employer] PLAN Unknown [id number] 31 Unknown [employer] [id number] Social History Date Type Detail Facility Tobacco smoking status NHIS Unknown if ever smoked [facility] Work Phone: Start: 1985 Sex Assigned At Male F [facility] Sex Assigned At Sex Assigned At [facility] [employer] Other Start: 05-02-2024 Tobacco smoking status NHIS Never smoked tobacco (finding) [facility] Start: 05-02-2024 Sex Male (finding) [facility] Evaluation note 08-19-2022 Note Date & Type [...] no improvement in 3 to 5 days [facility] [employer] Other Clinical Note 06-18-2021 Note Date & [...] in good condition. CC: Kp Peña M.D. [facility] Signed and Approved by: DR KYLE CAREY . 06/20/2021 14:04:00 [facility] Clinical Note 06-06-2021 Note Date & Type [...] than 100 in (more content not included)... [facility] Comment on above: Result Comment: Elec tronically Signed By: MAGNOLIA JENSEN, Kyle Carroll.campos\Date and Time Signed: 06/06/21 14:01 EDT Evaluation note Note Date & Type Note Facility Evaluation note No assessment information availa [facility] Work Phone: Evaluation note Note Date & Type Note Facility Evaluation note Diagnosis Onset Date Resolution Influenza A noneactive April 11:34am Sore throat noneactive April 11:34am [facility] Work Phone: History general Narrative - Reported Note Date & Type Note Facility History general Narrative - Reported Type Medical History Asthma Medical History seasonal allergies Medical History rosacea Medical History Anxiety Surgical History Clavicle repair 2004 Surgical History Lumbar Discectomy Hospitalization History Bronchitis 2001 Hospitalization History See above 2004 [employer] Other Summary Purpose Family History Relationship Condition [...] section and content) DATE CREATED AUTHOR 08/01/2021 [facility] DATE CREATED AUTHOR AUTHOR'S ORGANIZ ATION 11/10/2021 [facility] DATE CREATED AUTHOR AUTHOR'S ORGANIZ ATION 09/02/2022 [facility] Care Teams (unrecognized sec tion and content) [...] BE BASED ON THE PRIMARY CLINICAL RECORDS. [employer] provides no warranty or guarantee of the accuracy or completeness of information in this document.
[2024-11-26 17:06] VITALS: BP 123/86; PULSE 96; TEMP 36.9; O2SAT 96; BMI 34.0
--- NOTE | 2024-11-26 17:24 | XR_ITS ---
[address] [address] Patient Name: BETINA CHAVIRA MRN: [id number] date: 1985 Sex: M Assigned Patient Location: ER Current Patient Location: ER Accession/Order Number: [id number] Exam Date: 11/26/2024 17:45 Report Date: 11/26/2024 18:00 At the request of: ORIN NIEVES MD Procedure: XR pelvis 1-2V Single view of the pelvis plain film HISTORY: Fell. Pelvic pain greater on the right COMPARISON: None ACUTE FINDINGS: None BONY ALIGNMENT: Adequate SOFT TISSUES: Unremarkable DEGENERATIVE CHANGE:Unremarkable INTRAPELVIC STRUCTURES: Unremarkable POSTSURGICAL CHANGES:None XR/XR pelvis 1-2V IMPRESSION:No acute displaced fracture Impression dictated by: Josué Red M.D. 11/26/2024 6:00 PM Dictation Location: [place] [address] Electronically authenticated by: [id number] Y Date: 11/26/2024 18:00
--- NOTE | 2024-11-26 17:25 | ED_ITS ---
HPI HPI - General Adult General Chief complaint: Fall Stated complaint: Fall Time Seen by Provider: 11/26/24 17:20 Source: patient and family Mode of arrival: Wheelchair Limitations: no limitations History of Present Illness HPI narrative: 38-year-old male presents for pain in his pelvic bone area. He stepped on a cistern cover which flipped sideways and he fell down and the cover hit him on the right inner very superior thigh area. He does not complain of testicular pain. He sustained some abrasions on his left leg and he states that leg went into supervisor sewer system water. He did not hit his head or sustain any other injuries. This happened just before coming into the emergency department. Related Data Home Medications ?Medication ?Instructions ?Recorded ?Confirmed triamcinolone acetonide 0.1 % 1 applic topical QDAY 11/26/24 topical cream Previous Rx's ?Medication ?Instructions ?Recorded cephalexin 500 mg capsule 500 mg PO TID 5 days #15 cap s 11/26/24 Allergies Allergy/AdvReac Type Severity Reaction Status Date / Time pantoprazole (From Protonix) Allergy Intermediate Anaphylaxis Verified 11/26/24 17:05 Opioid HPI Opioid Management Most Recent Opioid Data: Last Pain Scale 8 Today, 17:06 Review of Systems ROS Narrative A ten point review of systems is negative except as noted above. PFSH PFSH Social History Little interest or pleasure in doing things: not at all Feeling down, depressed, or hopeless: not at all Exam Narrative Exam Narrative: Nurses note and vital signs reviewed and patient is not hypoxic. General: The patient appears well and in no apparent distress. Patient is resting comfortably on cart. Skin: Warm, dry, no pallor noted. There are superficial abrasions on his left leg. Head: Normocephalic, atraumatic Eye: Normal conjunctiva, no drainage Ears, Nose, Mouth, and Throat: oral mucosa is moist. Nares patent. Cardiovascular: Regular Rate and Rhythm Respiratory: Patient is in no distress, no accessory muscle use, lungs are cl ear to auscultation, no wheezing, rales or rhonchi Back: non-tender, no CVA tenderness bilaterally to percussion. GI: Soft and nontender : He has 2 tiny abrasions on the right hemiscrotum. No testicular tenderness or swelling. He has tenderness in the extreme superior right inner thigh region. Hip has full range of motion. Musculoskeletal: The patient has no evidence of calf tenderness, no pitting edema, symmetrical pulses noted bilaterally Neurological: A&O x4, normal speech Psychiatric: Cooperative Constitutional Vital Signs, click to edit/add: Last Vital Signs Temp 98.4 F 11/26/24 17:06 Pulse 96 H 11/26/24 17:06 Resp 16 11/26/24 17:06 BP 123/86 11/26/24 17:06 Pulse Ox 96 11/26/24 17:06 O2 Del Method Room Air 11/26/24 17:06 Course Vital Signs Vital signs: Vital Signs Temperature 98.4 F 11/26/24 17:06 Pulse Rate 96 H 11/26/24 17:06 Respiratory Rate 16 11/26/24 17:06 Blood Pressure 123/86 11/26/24 17:06 Pulse Oximetry 96 11/26/24 17:06 Oxygen Delivery Method Room Air 11/26/24 17:06 Temperature 98.4 F 11/26/24 17:06 Pulse Rate 96 H 11/26/24 17:06 Respiratory Rate 16 11/26/24 17:06 Blood Pressure 123/86 11/26/24 17:06 Pulse Oximetry 96 11/26/24 17:06 Oxygen Delivery Method Room Air 11/26/24 17:06 Medical Decision Making MDM Narrative Medical decision making narrative: Pelvis x-ray is negative. There is no testicular injury on exam. He has abr asions and is concerned about infection because his leg went into supervisor sewer system water. He is prescribed prophylactic Keflex. Tetanus status is already up-to-date. Treatment diagnosis and follow-up were discussed with the patient. Differential Diagnosis Differential Diagnosis: Abrasions, pelvic fracture, testicular injury Imaging Data Pelvis x-ray: Radiologist's impression: ITS Impressions Pelvis X-Ray 11/26/24 17:24 IMPRESSION:No acute displaced fracture Impression dictated by: Josué Red M.D. 11/26/2024 6:00 PM [facility] Electronically authenticated by: [id number] Y Date: 11/26/2024 18:00 Discharge Plan Discharge Chief Complaint: Fall Clinical Impression: Fall, Abrasion of left leg Patient Disposition: Home, Self-Care Time of Disposition Decision: 18:15 Condition: Good Mode of Transportation: Private Vehicle Prescriptions / Home Meds: New cephalexin 500 mg capsule 500 mg PO TID 5 Days Qty: 15 0RF No Action triamcinolone acetonide 0.1 % cream 1 applic TOPICAL QDAY Print Language: [place]uran Instructions: Abrasion (ED) Referrals: Elvis Peña MD [Primary Care Provider, Family Practice] - 1 week
== END 2024-11-26 18:41 | disposition home or self-care (01) ==
PROVIDERS: Emergency Provider Emergency Medicine; PCP Family Medicine
DX: S80.812A Abrasion, left lower leg, initial encounter (principal); W01.0XXA Fall on same level from slipping, tripping and stumbling without subsequent striking against object, initial encounter
CPT/HCPCS: 72170; 99283